=== PATIENT | male | born 1940 | race Caucasian/White ===

== ENCOUNTER 2017-03-26 11:50 | Inpatient (IN) ==
[2017-03-26] MEDS ORDERED: FUROSEMIDE 100 MG/10 ML VIAL IV STA (12:06)
[2017-03-26] MEDS ORDERED: ALBUTEROL/IPRATROPIUM 3 ML NEB RESP TX STA (12:06)
--- NOTE | 2017-03-26 12:11 | Emergency Department Note ---
Arrival - Arrival Chief Complaint: Shortness of Breath Stated Complaint: TRANSFER FROM [facility] ED Nursing Triage Note: PT TRANSFERRED FROM [facility] FOR EVAL OF ELEVATED BNP. PT HAS HAD URI S/S FOR OVER A WEEK WHICH HE SAW DR PICHARDO FOR. PT WOKE THIS AM WITH CHEST PAIN AND SHORTNESS OF BREATH. ASA GIVEN AT [facility]. Mode of Arrival: Stretcher Limitations: No Limitations Source: Patient Time Seen by Provider: 03/26/17 12:06 - History of Present Illness HPI Narrative: This 76-year-old white male dialysis patient followed by Dr. Woodward presents on transfer from [facility] with complaints of shortness of breath. The patient has had 2 months of increasing shortness of breath at rest and with exertion associated with a frequent dry cough in the last 2 weeks. The patient denies orthopnea, PND, pedal edema, or chest pain. Although on dialysis he still urinates. Notable in his workup at [facility] was a proBNP of 35,000 as well as a chest x-ray consistent with congestive heart failure. Currently at rest the patient is in no distress. Onset (ago): week(s) (Patient presents 2 weeks post onset of symptoms) Allergies/Adverse Reactions: Allergies Allergy/AdvReac Type Severity Reaction Status Date / Time morphine Allergy Hallucinati Verified 03/26/17 12:00 ng Home Medications: Home Medications Medication Instructions Recorded Confirmed Type Carvedilol [Coreg] 6.25 mg PO BID #180 tablet 04/01/16 11/10/16 Rx Clopidogrel [Plavix] 75 mg PO DAILY #90 tablet 04/01/16 11/15/16 Rx Heparin Inj 2,000 unit IV WITH DIALYSIS PRN #0 04/01/16 11/15/16 Rx vial Iron Sucrose [Venofer] 50 mg IV WITH DIALYSIS PRN #0 vial 04/01/16 11/10/16 Rx Lisinopril [Prinivil] 2.5 mg PO DAILY #90 tablet 04/01/16 11/10/16 Rx Sevelamer Carbonate Tab [Renvela 800 mg PO TID W/MEALS tablet 04/01/16 Rx Tab] Aspirin [Ecotrin] 81 mg PO DAILY 07/29/16 11/10/16 History Dutasteride/Tamsulosin HCl [Kathy] 1 capsule PO DAILY 09/15/16 11/15/16 History HYDROcodone/ACETAMIN 7.5-325 1 tablet PO Q4H PRN #30 tablet 11/15/16 Rx [Husser 7.5-325] Review of System - Review of System 12 point system: reviewed and no additional remarkable complaints except as stated - Review of System Constitutional: Present: as per HPI Respiratory: Present: as per HPI Cardiovascular: Present: as per HPI Genitourinary male: Present: as per HPI Medical,Surgical,& Family Hx - Medical History Cardio: History of: CHF, Hypertension Neurology: No history of: Seizures HEENT: History of: Eye Problem (GLASSES, CATARACTS), Dental Problems (UPPER AND LOWER) Renal: History of: Dialysis ([facility] DR[facility] WOODWARD), Renal Failure, Renal Problems ( polycystic kidney disease) Genitourinary: History of: Prostate Problems - Surgical History Cardiac Surgeries: Sugical HX of: Cardiac Catheterization (STENT ), Vascular Access Devices (LEFT ARM AV GRAFT) Thoracic Surgeries: Patient denies;: Organ Transplant, Lobectomy Neurologic Surgeries: Patient denies: Neurologic Surgery HEENT Surgeries: Surgical HX of: Eye Surgery (BILATERAL CATARACTS) Abdominal Surgeries: Patient denies: Abdominal Surgery Reproductive Surgeries: Patient denies;: Genitourinary Surgery - Family History Family History: Reports;: Family Hypertension - Social History Smoking Status: Never smoker Frequency of Alcohol Use: None Type of Drug Use: None Exam Physical Examination: GENERAL: Well developed, well nourished elderly white male in no acute distress. HEENT: Normocephalic. No trauma. Moist mucous membranes. EOMI. PERRLA. ENT NML NECK: Supple. No adenopathy. CARDIAC: Regular. No murmurs. Heart rate 100 CHEST: Bibasilar inspiratory rales. No respiratory distress. O2 sat 99%. Right chest Vas-Cath ABDOMEN: Soft. Nontender. Active bowel sounds. EXTREMITIES: No trauma. Normal ROM. No pedal edema. Left upper extremity active fistula with good thrill as well as below that a did fistula. SKIN: No diaphoresis. No rash. NEURO: Alert. Neuro intact no focal deficits. Vital Signs: Vital Signs Temperature 97.2 F L 03/26/17 11:50 Pulse Rate 80 03/26/17 12:16 Respiratory Rate 13 03/26/17 12:16 Blood Pressure 170/90 03/26/17 11:50 O2 Sat by Pulse Oximetry 100 03/26/17 12:16 Course - Reevaluation(s) Reevaluation #1: Patient expectant of admission for heart failure. - Consultations Consultation #1: Discussed with hospitalist service who will admit the patient for further evaluation treatment. Results - Labs Labs: Lab per layered: White blood cell count 11,000 hematocrit 37, BUN 46, creatinine 8.1, glucose 112, CK-MB 0, CPK 29, troponin 0.05, proBNP 35,000 - Impressions EKG sinus rhythm with rare PVC with normal IN interval but intraventricular conduction delay at a rate of 99. Diffuse nonspecific ST changes with no acute injury pattern noted. Disposition Clinical Impression: Congestive heart failure, Dialysis dependent renal failure Case discussed with: patient Disposition: Still a Patient Condition: Guarded Time of Disposition: 12:27
[2017-03-26] MEDS ORDERED: FUROSEMIDE 100 MG/10 ML VIAL ONE (12:26)
[2017-03-26 13:13] LABS: Troponin I Only 0.046 NG/ML (0.00-0.045)
--- NOTE | 2017-03-26 13:30 | Hospitalist History & Physical ---
Assessment and Plan (1) Congestive heart failure Status: Acute Assessment and plan: Admit to telemetry. Cardiac monitoring. Recheck BNP in am. Repeat CXR. Diuresis w/ Lasix. Consult cardiology. Current Visit: No (2) Coronary artery disease Status: Chronic Current Visit: No (3) End stage renal disease Status: Chronic Assessment and plan: Pt. dialyzes MWF. Will consult nephrology to see. Current Visit: No (4) Hypertension Status: Chronic Assessment and plan: Pt. stable presently in am. Current Visit: No Qualifiers: Hypertension type: essential hypertension Qualified Code(s): I10 - Essential (primary) hypertension (5) Polycystic kidney disease Status: Chronic Current Visit: No History of Present Illness Chief complaint: chf exacerbation History of present illness: Mr. Hudson is a 76 year old white male with a history of hypertension, coronary artery disease, CHF, anemia, end-stage renal disease on dialysis that presents to the ED as a transfer from [place] in [place], [place]. Patient was transferred over for further evaluation of shortness of breath. Patient has been having problems with progressively worsening shortness of breath and a dry cough over the last two weeks. Patient states that the cough is nonproductive. Patient also states that this morning he was having midsternal chest pain with the shortness of breath. Patient denies edema to his lower extremities but does complain of edema to his bilateral upper extremities. Patient is a renal patient known to Dr. Woodward and dialyzes on Monday, Monday, and Monday. Patient is a status post dialysis for the last 5 years. Chest x-ray at outside facility was consistent with congestive heart failure. In the ED patient was found to have an elevated troponin (0.046) and elevated BNP (3484). Patient will be admitted to the hospitalist service. Home Medications Medication Instructions Recorded Confirmed Type Clopidogrel [Plavix] 75 mg PO DAILY #90 tablet 04/01/16 03/26/17 Rx Aspirin [Ecotrin] 81 mg PO DAILY 07/29/16 03/26/17 History Dutasteride/Tamsulosin HCl [Kathy] 1 capsule PO DAILY 09/15/16 03/26/17 History Albuterol Sulfate [Proair HFA] 2 puff INH Q4H PRN 03/26/17 03/26/17 History Atenolol 50 mg PO DAILY 03/26/17 03/26/17 History Carvedilol [Coreg] 3.125 mg PO BID 03/26/17 03/26/17 History Sevelamer Carbonate Tab [Renvela 800 mg PO DAILY 03/26/17 03/26/17 History Tab] Allergies Allergy/AdvReac Type Severity Reaction Status Date / Time morphine Allergy Hallucinati Verified 03/26/17 12:00 ng Medical,Surgical,& Family Hx - Medical History Cardio: History of: CHF, Hypertension Neurology: No history of: Seizures HEENT: History of: Eye Problem (GLASSES, CATARACTS), Dental Problems (UPPER AND LOWER) Renal: History of: Dialysis ([facility] DR[facility] WOODWARD), Renal Failure, Renal Problems ( polycystic kidney disease) Genitourinary: History of: Prostate Problems - Surgical History Cardiac Surgeries: Sugical HX of: Cardiac Catheterization (STENT ), Vascular Access Devices (LEFT ARM AV GRAFT) Thoracic Surgeries: Patient denies;: Organ Transplant, Lobectomy Neurologic Surgeries: Patient denies: Neurologic Surgery HEENT Surgeries: Surgical HX of: Eye Surgery (BILATERAL CATARACTS) Abdominal Surgeries: Patient denies: Abdominal Surgery Reproductive Surgeries: Patient denies;: Genitourinary Surgery - Family History Family History: Reports;: Family Hypertension - Social History Smoking Status: Never smoker Frequency of Alcohol Use: None Type of Drug Use: None Marital Status: Lives With:: Spouse Functional capacity: uses cane/walker - Constitutional Constitutional: Absent: chills, fever(s), night sweats - EENT Eyes: Present: loss of vision. Absent: blurry vision Ears: Absent: ear discharge Nose, mouth and throat: Absent: headache(s), hoarseness - Cardiovascular Cardiovascular: Present: dyspnea, edema - Respiratory Respiratory: Present: cough (nonproductive), dyspnea - Gastrointestinal Gastrointestinal: Absent: abdominal pain, nausea, vomiting - Genitourinary Genitourinary: Absent: difficulty urinating, urinary incontinence - Neurological Neurological: Absent: confusion, headache(s) - Psychiatric Psychiatric: Absent: confusion, depression - Hematologic/Lymphatic Hematologic/Lymphatic: Absent: easy bruising Exam - Constitutional Vitals: Period Temp Pulse Resp BP Sys/Mendoza Pulse Ox Last 24 Hr 97.2 F 79-99 12-18 170/90 98-100 General appearance: normal weight, no acute distress - Head Head exam: Present: normal inspection, normocephalic - Eye Eye exam: Present: EOMI. Absent: periorbital swelling Pupils: Present: JORGE L. Absent: dilated - Neck Neck exam: Present: normal inspection. Absent: thyromegaly - Respiratory Respiratory exam: Present: clear to auscultation bilaterally. Absent: wheezes - Cardiovascular Cardiovascular exam: Present: tachycardia - GI/Abdominal GI/Abdominal exam: Present: normal bowel sounds, soft. Absent: tenderness - Extremities Exam Extremities exam: Present: edema (bilateral upper arm) - Neurological Exam Neurological exam: Present: alert, oriented X3 - Psychiatric Psychiatric exam: Present: normal affect, normal mood - Skin Skin exam: Present: normal color, warm, dry
[2017-03-26] MEDS ORDERED: MAGNESIUM SULF RIDER 4 GM in PREMIX 1 EACH IV PRN (15:04)
[2017-03-26] MEDS ORDERED: DOCUSATE SODIUM 100 MG CAPSULE PO PRN (15:04)
[2017-03-26] MEDS ORDERED: MAGNESIUM SULF RIDER 2 GM in PREMIX 1 EACH IV PRN (15:04)
[2017-03-26] MEDS ORDERED: ONDANSETRON 4 MG/2 ML VIAL IV PRN (15:04)
[2017-03-26] MEDS ORDERED: ALBUTEROL 2.5 MG/3 ML NEB RESP TX PRN (15:04)
[2017-03-26] MEDS ORDERED: ACETAMINOPHEN 325 MG TABLET PO PRN (15:04)
--- NOTE | 2017-03-26 15:31 | XRay Report ---
History CHF Chest one view 03/26/2017 at 3:00 PM Comparison with earlier the same day The heart and vessels are enlarged with upper lobe vascular congestion There is been mild worsening of moderate diffuse bilateral reticular and hazy pulmonary opacities without more focal consolidation Impression: Mild worsening of pulmonary edema PROCEDURE INTERPRETED AT [facility] DEPARTMENT OF RADIOLOGY Final Report Signed by: Dr. Lucrecia Kennedy
--- NOTE | 2017-03-26 15:51 | Nephrology Consult Note ---
History of Present Illness Chief complaint: Shortness of breath in a patient on dialysis History of present illness: Mr. Hudson is a 76 year old male with end-stage renal disease who dialyzes on Monday basis in [facility]. The patient presented to the hospital today with complaints of shortness of breath. The patient last dialyzed Monday of last week he states they were able to pull off about 2 L of fluid and was feeling well up until today when he began to have some shortness of breath. The patient states she has had an associated cough but has not been bringing up much of anything. He also had some associated chest pain. The patient states he has been having a cough for the past 2 months or so he is been tried on multiple antibiotics without any improvement. Review of his record reveals a cardiac catheterization done about a year ago that showed an ejection fraction of 20% with moderate to severe mitral insufficiency. The patient also had a coronary artery stent done at that time. The patient denies overindulging in salt or fluid intake over the weekend. The patient reports that he was in the hospital within a few months ago for similar complaints of shortness of breath. ROS: Head - denies headaches ENT - denies sore throat Lymphatics - denies lymphadenopathy Hematology - denies bleeding problems Heart -positive chest pain Lungs -positive shortness of breath Abdomen - denies abdominal pain Musculoskeletal -positive arthritis Skin -positive rash Neurology -positive stroke General - denies fever PE: General: in no acute distress Eyes: Pupils are round and reactive, conjunctivae are clear ENT: Nose is clear, O/P is benign Neck: Supple, no thyromegaly Lymphatics: No cervical, supraclavicular or axillary adenopathy Heart: Regular rate and rhythm, no edema Lungs: Clear to auscultation anteriorly but has a congested sounding cough heard without the stethoscope, chest expansion symmetric Abdomen: Soft, normoactive bowel sounds, no hepatomegaly Musculoskeletal: No joint erythema or effusions or joint asymmetry Skin: Normal turgor, normal hydration, no rash Neuro/Psych: Alert and cooperative with fair insight Home Medications Medication Instructions Recorded Confirmed Type Clopidogrel [Plavix] 75 mg PO DAILY #90 tablet 04/01/16 03/26/17 Rx Aspirin [Ecotrin] 81 mg PO DAILY 07/29/16 03/26/17 History Dutasteride/Tamsulosin HCl [Kathy] 1 capsule PO DAILY 09/15/16 03/26/17 History Calcium Carb/Magnesium Hydrox 1 each PO TID W/MEALS 03/26/17 03/26/17 History [Rolaids Chewable Tablet] Carvedilol [Coreg] 3.125 mg PO BID 03/26/17 03/26/17 History Nitroglycerin 0.4 mg SL DIRECTED 03/26/17 03/26/17 History Sevelamer Carbonate Tab [Renvela 800 mg PO DAILY 03/26/17 03/26/17 History Tab] Allergies Allergy/AdvReac Type Severity Reaction Status Date / Time morphine Allergy Hallucinati Verified 03/26/17 15:30 ng Medical,Surgical,& Family Hx - Medical History Cardio: History of: CHF, Hypertension Neurology: No history of: Seizures HEENT: History of: Eye Problem (GLASSES, CATARACTS), Dental Problems (UPPER AND LOWER) Renal: History of: Dialysis (MWF DR. WOODWARD), Renal Failure, Renal Problems ( polycystic kidney disease) Genitourinary: History of: Prostate Problems - Surgical History Cardiac Surgeries: Sugical HX of: Cardiac Catheterization (STENT ), Vascular Access Devices (LEFT ARM AV GRAFT) Thoracic Surgeries: Patient denies;: Organ Transplant, Lobectomy Neurologic Surgeries: Patient denies: Neurologic Surgery HEENT Surgeries: Surgical HX of: Eye Surgery (BILATERAL CATARACTS) Abdominal Surgeries: Patient denies: Abdominal Surgery Reproductive Surgeries: Patient denies;: Genitourinary Surgery - Family History Family History: Reports;: Family Hypertension - Social History Smoking Status: Never smoker Frequency of Alcohol Use: None Type of Drug Use: None Exam - Vital Signs Vital signs: Period Temp Pulse Resp BP Sys/Mendoza Pulse Ox Last 24 Hr 96.2 F-97.2 F 72-114 12-19 135-170/76-90 98-100 Assessment and Plan (1) Congestive heart failure Status: Acute Assessment and plan: This patient has an elevated BNP and is having dyspnea at rest he has a long history of cardiomyopathy with an ejection fraction around 20% last year and moderate to severe mitral insufficiency. The patient is breathing better with supplemental O2 will plan on hemodialysis tomorrow. Current Visit: No (2) History of end stage renal disease Status: Acute Assessment and plan: Hemodialysis tomorrow Current Visit: No (3) Secondary hyperparathyroidism Status: Acute Assessment and plan: We will continue his Renvela Current Visit: No (4) cardiomyopathy of undetermined etiology Status: Acute Current Visit: No (5) Coronary artery disease Status: Chronic Current Visit: No (6) Hypertension Status: Chronic Current Visit: No Qualifiers: Hypertension type: essential hypertension Qualified Code(s): I10 - Essential (primary) hypertension
[2017-03-26 16:03] LABS: Basophils # 0.1 10*3/uL (0.0-0.2); Basophils % 0.5 % (0.0-0.8); Eosinophils # 0.1 10*3/uL (0.0-0.87); Eosinophils % 1.2 % (0.00-10.9); Hematocrit 34.7 VOL% (42.0-52.0); Hemoglobin 11.2 GM/DL (14.0-18.0); Immature Granulocytes % 0.6 %; Immature Granulocytes Absolute 0.06 #; Lymphocytes # 1.5 10*3/uL (1.4-4.0); Lymphocytes % 14.3 % (21.2-54.2); Mean Corpuscular HGB Conc 32.3 GM/DL (32-36); Mean Corpuscular Hemoglobin 34 PG (27-34); Mean Corpuscular Volume 104.8 FL (87-102); Mean Platelet Volume 10.8 FL (9.6-12.0); Monocytes # 0.9 10*3/uL (0.11-0.8); Neutrophils # 8.2 10*3/uL (1.4-7.4); Neutrophils % 75.4 % (38.7-73.9); Platelet Count 183 T/CUMM (130-400); Red Blood Count 3.31 MC/CUMM (3.8-5.5); White Blood Count 10.8 T/CUMM (4-12)
[2017-03-26 16:24] LABS: Calcium 9.6 MG/DL (8.5-10.1)
[2017-03-26 16:25] LABS: Osmolality,Calculated 290.5 MOS/KG (273-304)
[2017-03-26 16:33] LABS: Troponin I Only 0.048 NG/ML (0.00-0.045)
--- NOTE | 2017-03-26 20:32 | Cardiology Consult Note ---
Assessment and Plan - Time spent with patient Time spent with patient: Greater than 30 minutes (1) Chest pain in adult Status: Acute Assessment and plan: Diagnosis would include GI, muscle skeletal, or CAD. It sounds more GI related. Try to start a low-dose of Coreg for his cardiomyopathy Discontinue the atenolol--the Coreg would be better for his cardiomyopathy Continue the clopidogrel I suspect he may need a lower dry body weight keep out of heart failure--will defer to nephrology as what weight that should be If the dispatcher tugboat think there is no contraindication, we might consider adding a low-dose of SYBIL inhibitor because of his known cardiomyopathy Echo/Doppler--murmur, cardiomyopathy-can be done tomorrow Agree with Protonix 40 mg daily Elevate head of bed Cardiac isoenzymes--every 6 hours 4 EKG every morning 3 If negative for [place], I would favor letting him go home and do an outpatient treadmill/Cardiolite with Dr. Beaulieu Elevate head of bed 30-40 Thank you for allowing me to participate in this patient's care Current Visit: Yes (2) Overweight Status: Acute Current Visit: Yes (3) Congestive heart failure Status: Acute Current Visit: No (4) History of end stage renal disease Status: Acute Current Visit: No (5) Secondary hyperparathyroidism Status: Acute Current Visit: No (6) Systolic congestive heart failure Status: Acute Current Visit: No (7) Volume overload Status: Acute Current Visit: No (8) cardiomyopathy of undetermined etiology Status: Acute Current Visit: No (9) Coronary artery disease Status: Chronic Current Visit: No (10) End stage renal disease Status: Chronic Current Visit: No History of Present Illness - Data of Consult Patient: known to practice within the last 3 years Consult date: 03/26/17 Primary care physician: Bon Lau - Consult Narrative Reason for consult: Evaluate shortness breath, chest pain History of present illness: Mr. Hudson is a 76 year old male PCP: Dr. Bon Lau Cardiology: Dr. Tobi Beaulieu Monkey Breeder: Dr. Jeremy Skaggs The patient has a known cardiomyopathy is nonischemic. History of prior stent of his mid right coronary. His LVEF about a year ago was 20%. He lives with some chest pain. Nothing brings it on. Nothing makes better but is burning. Is in his mid chest. It does not radiate to neck arms or back. It been more short of breath. He came to emergency room. He was seen. Has heart failure. because of his chest pain and history of prior coronary stent, he is admitted. Also seen probably has orthopnea, PND 3. No edema, palpitations, syncope, wheezing or phlegm. He has had cough for the last 2 months Past medical history: Hypertension Prior coronary stent Volume overload End-stage renal disease-on hemodialysis .. This admission was 3484 with a creatinine Cardiomyopathy, nonischemic Overweight CC: Dustin Wiggins MD - Home Medications and Allergies Home Medications: Home Medications Medication Instructions Recorded Confirmed Type Clopidogrel [Plavix] 75 mg PO DAILY #90 tablet 04/01/16 03/26/17 Rx Aspirin [Ecotrin] 81 mg PO DAILY 07/29/16 03/26/17 History Dutasteride/Tamsulosin HCl [Kathy] 1 capsule PO DAILY 09/15/16 03/26/17 History Calcium Carb/Magnesium Hydrox 1 each PO TID W/MEALS 03/26/17 03/26/17 History [Rolaids Chewable Tablet] Carvedilol [Coreg] 3.125 mg PO BID 03/26/17 03/26/17 History Nitroglycerin 0.4 mg SL DIRECTED 03/26/17 03/26/17 History Sevelamer Carbonate Tab [Renvela 800 mg PO DAILY 03/26/17 03/26/17 History Tab] Allergies/Adverse Reactions: Allergies Allergy/AdvReac Type Severity Reaction Status Date / Time morphine Allergy Hallucinati Verified 03/26/17 15:30 ng 12 point system: reviewed and no additional remarkable complaints except as stated (A 12 point review of systems is negative except for as mentioned in HPI. ) Medical,Surgical,& Family Hx - Medical History Cardio: History of: CHF, Hypertension Neurology: No history of: Seizures HEENT: History of: Eye Problem (GLASSES, CATARACTS), Dental Problems (UPPER AND LOWER) Renal: History of: Dialysis (MWF DR. SKAGGS), Renal Failure, Renal Problems ( polycystic kidney disease) Genitourinary: History of: Prostate Problems - Surgical History Cardiac Surgeries: Sugical HX of: Cardiac Catheterization (STENT ), Vascular Access Devices (LEFT ARM AV GRAFT) Thoracic Surgeries: Patient denies;: Organ Transplant, Lobectomy Neurologic Surgeries: Patient denies: Neurologic Surgery HEENT Surgeries: Surgical HX of: Eye Surgery (BILATERAL CATARACTS) Abdominal Surgeries: Patient denies: Abdominal Surgery Reproductive Surgeries: Patient denies;: Genitourinary Surgery - Family History Family History: Reports;: Family Hypertension - Social History Smoking Status: Never smoker Frequency of Alcohol Use: None Type of Drug Use: None Functional capacity: independent ambulation Physical Examination Vital Signs Temp Pulse Resp BP Pulse Ox 97.2 F L 99 H 18 170/90 99 03/26/17 11:50 03/26/17 11:50 03/26/17 11:50 03/26/17 11:50 03/26/17 11:50 Other: HEENT: Pupils equal, reactive to light and accommodation Neck: NoJVD or bruit Lungs clear to auscultation Heart: Regular rhythm rate with normal S1 and S2. Apical S4, 1/6 systolic ejection murmur along left lower sternal border. Abdomen: No hepatosplenomegaly Spine/extremities: No clubbing, cyanosis, or edema Neuro: Nonfocal Psych: No depression or anxiety No chest pain with pressing on the chest. Result/EKG - Labs CBC & BMP: 03/26/17 15:41 03/26/17 15:41 Lab Results: I have reviewed the past 24 hour labs Labs: Laboratory Results - last 24 hr 03/26/17 03/26/17 03/26/17 12:35 12:35 15:41 WBC RBC Hgb Hct MCV MCH MCHC RDW Plt Count MPV Neut % (Auto) Lymph % (Auto) [place] % (Auto) Eos % (Auto) Baso % (Auto) Neut # (Auto) Lymph # (Auto) [place] # (Auto) Eos # (Auto) Baso # (Auto) Immature Gran % Nucleated RBC % Immature Gran # Nucleated RBCs # Sodium Potassium Chloride Carbon Dioxide Anion Gap BUN Creatinine GFR Calculation BUN/Creatinine Ratio Glucose Calculated Osmolality Calcium Total Creatine Kinase 18 L 21 L CK-MB (CK-2) < 1.0 < 1.0 Troponin I 0.046 H 0.048 H B-Natriuretic Peptide 3484 H 03/26/17 03/26/17 03/26/17 15:41 15:41 17:45 WBC 10.8 RBC 3.31 L Hgb 11.2 L Hct 34.7 L MCV 104.8 H MCH 34 MCHC 32.3 RDW 14.0 Plt Count 183 MPV 10.8 Neut % (Auto) 75.4 H Lymph % (Auto) 14.3 L [place] % (Auto) 8.0 Eos % (Auto) 1.2 Baso % (Auto) 0.5 Neut # (Auto) 8.2 H Lymph # (Auto) 1.5 [place] # (Auto) 0.9 H Eos # (Auto) 0.1 Baso # (Auto) 0.1 Immature Gran % 0.6 Nucleated RBC % 0.0 Immature Gran # 0.06 Nucleated RBCs # 0.00 Sodium 139 Potassium 5.0 Chloride 96 L Carbon Dioxide 33 H Anion Gap 15.0 BUN 50 H Creatinine 8.60 H GFR Calculation 6 BUN/Creatinine Ratio 5.00 L Glucose 110 H Calculated Osmolality 290.5 Calcium 9.6 Total Creatine Kinase 21 L CK-MB (CK-2) < 1.0 Troponin I 0.050 H B-Natriuretic Peptide - Diagnostic Findings Procedure: Chest x-ray: report reviewed by me - EKG EKG results: interpreted by me
[2017-03-26] MEDS: FUROSEMIDE 40 MG/4 ML VIAL IV SCH (20:53)
[2017-03-26] MEDS: CARVEDILOL 12.5 MG TABLET PO SCH (21:00)
[2017-03-26 22:02] LABS: Troponin I Only 0.084 NG/ML (0.00-0.045)
[2017-03-27 04:59] LABS: Basophils % 0.3 % (0.0-0.8); Eosinophils % 0.3 % (0.00-10.9); Hematocrit 33.1 VOL% (42.0-52.0); Hemoglobin 10.8 GM/DL (14.0-18.0); Immature Granulocytes % 1.2 %; Immature Granulocytes Absolute 0.16 #; Lymphocytes # 1.4 10*3/uL (1.4-4.0); Lymphocytes % 10.4 % (21.2-54.2); Mean Corpuscular HGB Conc 32.6 GM/DL (32-36); Mean Corpuscular Hemoglobin 35 PG (27-34); Mean Corpuscular Volume 106.1 FL (87-102); Mean Platelet Volume 11.8 FL (9.6-12.0); Monocytes # 1.1 10*3/uL (0.11-0.8); Monocytes % 8.3 % (1.7-12.7); Neutrophils # 10.5 10*3/uL (1.4-7.4); Neutrophils % 79.5 % (38.7-73.9); Platelet Count 145 T/CUMM (130-400); Red Blood Count 3.12 MC/CUMM (3.8-5.5); Red Cell Distribution Width 14.2 % (9.3-17.3); White Blood Count 13.2 T/CUMM (4-12)
[2017-03-27 05:34] LABS: Calcium 9.6 MG/DL (8.5-10.1); Magnesium 2.7 MG/DL (1.8-2.4); Osmolality,Calculated 296.4 MOS/KG (273-304); Potassium 5.7 MMOL/L (3.5-5.1)
[2017-03-27 05:43] LABS: Free T4 (Free Thyroxine) 1.02 NG/DL (0.76-1.46); Magnesium 2.8 MG/DL (1.8-2.4); Thyroid Stimulating Hormone 1.39 uIU/ml (0.358-3.74)
[2017-03-27 06:05] LABS: Hypochromasia Slight
[2017-03-27 06:06] LABS: Platelet Estimate Adequate
--- NOTE | 2017-03-27 06:11 | EKG Report ---
Stationary ECG Study [facility] Test Date: 03/26/2017 5:16:51 PM Pat Name: LOUIE ANDRES Department: Room: 265 Gender: M Manager Rental: [facility] lead : 1940 Requested by: Zachary Thomas Order Number: [id number] Reading MD: EVELYN HARRIS Intervals [place] Rate: 105 P: 31 [place]: 175 QRS: 14 QRSD: 146 T: 148 QT: 366 QTc: 427 Interpretive Statements SINUS TACHYCARDIA WITH FREQUENT VENTRICULAR PREMATURE COMPLEXES POSSIBLE LEFT ATRIAL ENLARGEMENT LEFT BUNDLE BRANCH BLOCK Electronically Signed On 03-27-17 10:42:43 CDT by EVELYN HARRIS [email or web address]
--- NOTE | 2017-03-27 06:31 | EKG Report ---
Stationary ECG Study [facility] ER Test Date: 03/26/2017 11:57:35 AM Pat Name: LOUIE ANDRES Department: Room: 265 Gender: M [place] Opener: : 1940 Requested by: Gray Dominguez Order Number: [id number] Reading MD: EVELYN HARRIS Intervals [place] Rate: 88 P: 71 [place]: 178 QRS: 115 QRSD: 144 T: -59 QT: 386 QTc: 432 Interpretive Statements SINUS RHYTHM WITH OCCASIONAL VENTRICULAR PREMATURE COMPLEXES MARKED RIGHT AXIS DEVIATION INTRAVENTRICULAR CONDUCTION DELAY Electronically Signed On 03-27-17 10:37:15 CDT by EVELYN HARRIS [id number]
[2017-03-27 06:46] LABS: Troponin I Only 0.503 NG/ML (0.00-0.045)
--- NOTE | 2017-03-27 07:31 | EKG Report ---
Stationary ECG Study [facility] Test Date: 03/27/2017 7:31:59 AM Pat Name: LOUIE ANDRES Department: Room: 265 Gender: M Analyst Microbiology Lab: [facility] : 1940 Requested by: Evelyn Pacheco Order Number: [id number] Reading MD: EVELYN PACHECO Intervals [place] Rate: 91 P: 63 HI: 164 QRS: 118 QRSD: 141 T: -50 QT: 389 QTc: 437 Interpretive Statements SINUS RHYTHM WITH OCCASIONAL VENTRICULAR PREMATURE COMPLEXES INTRAVENTRICULAR CONDUCTION DELAY Electronically Signed On 03-27-17 08:06:30 CDT by EVELYN PACHECO [email or web address]
[2017-03-27 07:55] LABS: Lymphocytes 10 % (20-55); Segmented Neutrophils 89 % (50-85); Total Cells Counted 100
[2017-03-27] MEDS ORDERED: ATENOLOL 50 MG TABLET PO SCH (09:00)
--- NOTE | 2017-03-27 10:47 | Nephrology Progress Note ---
Nephrology - PN: Subj Interval history: Patient states she is breathing better with the supplemental O2. Review of systems GI denies nausea or vomiting Physical exam general the patient is chronically ill-appearing Assessment/plan #1. End-stage renal disease we will continue hemodialysis support 2. Cardiomyopathy with congestive heart failure-lowering his dry weight sounds like a very reasonable approach and will try and effect this with dialysis, an SYBIL or an angiotensin receptor zack would be fine if he will tolerate this of note the patient's blood pressure is already fairly low with a systolic of 110-120 and I am not sure how that would hold up under a dry weight challenge much less just trying to keep his weight even with ultrafiltration on dialysis. 3. History of hypertension 4. Anemia-this is mild his hematocrit is 33% Exam (PN)-Nephrology - Vital Signs Vital signs: Period Temp Pulse Resp BP Sys/Mendoza Pulse Ox Last 24 Hr 96.2 F-98.8 F 72-119 12-20 110-170/60-90 92-100 - Lab 03/27/17 03:51 03/27/17 03:51 Most recent lab results Calcium 9.6 MG/DL (8.5-10.1) 03/27/17 03:51 Magnesium 2.8 MG/DL (1.8-2.4) H 03/27/17 03:51 Assessment and Plan (1) Congestive heart failure Status: Acute Assessment and plan: This patient has an elevated BNP and is having dyspnea at rest he has a long history of cardiomyopathy with an ejection fraction around 20% last year and moderate to severe mitral insufficiency. The patient is breathing better with supplemental O2 will plan on hemodialysis tomorrow. Current Visit: No (2) History of end stage renal disease Status: Chronic Assessment and plan: Hemodialysis tomorrow Current Visit: Yes (3) Secondary hyperparathyroidism Status: Acute Assessment and plan: We will continue his Renvela Current Visit: No (4) cardiomyopathy of undetermined etiology Status: Acute Current Visit: No (5) Coronary artery disease Status: Chronic Current Visit: Yes (6) Hypertension Status: Chronic Current Visit: Yes Qualifiers: Hypertension type: essential hypertension Qualified Code(s): I10 - Essential (primary) hypertension
--- NOTE | 2017-03-27 12:35 | Hospitalist Progress Note ---
Assessment and Plan - Time spent with patient Time spent with patient: Less than 30 minutes (1) Congestive heart failure Status: Acute Assessment and plan: Mr. Hudson is a 76-year-old white male with history of hypertension, end-stage renal disease on HD, coronary artery disease, and congestive heart failure admitted by the hospitalist service on 03/26/2017 with acute exacerbation of congestive heart failure. Patient had mildly elevated troponin and elevated BNP. His fluid has been restricted and he has been receiving Lasix IV. Nephrology and cardiology are following. Dr. Marlow to see and examined patient and further recommendations to follow. Acute CHF--patient is receiving 40 mg IV Lasix twice daily. He is also to undergo hemodialysis today which should help. Patient is breathing much easier and his lungs are clear though his BNP this morning shows greater than 5000. CAD--cardiology is following. They have discontinued his atenolol and started Coreg which is better for his cardiomyopathy. They were to continue his Plavix. There are also checking cardiac isoenzymes and EKGs for [facility]. If VA is negative they recommend outpatient treadmill/Cardiolite with Dr. Beaulieu. Echo has been ordered and looks like it was done but [facility]. End-stage renal disease on HD--nephrology is following and will monitor patient' s dry body weight. Cardiology wants to consider adding a low-dose SYBIL inhibitor if okay with nephrology. Current Visit: No (2) End stage renal disease Status: Chronic Current Visit: No (3) Polycystic kidney disease Status: Chronic Current Visit: No (4) Hypertension Status: Chronic Current Visit: Yes Qualifiers: Hypertension type: essential hypertension Qualified Code(s): I10 - Essential (primary) hypertension (5) Coronary artery disease Status: Chronic Current Visit: Yes Hospitalist: Subjective Interval history: Mr. Hudson feels much better today. He states his breathing is easier and is supposed to have dialysis sometime today. He does state he has had some blood in his urine since they took the Villanueva out and burning with urination. Exam - Constitutional Vitals: Period Temp Pulse Resp BP Sys/Mendoza Pulse Ox Last 24 Hr 96.2 F-98.8 F 85-119 17-20 110-135/60-84 92-99 Exam: 76-year-old white male, no acute distress, alert and oriented Chest clear CV regular rate and rhythm Abdomen soft and nontender Extremities no edema Results - Labs CBC & BMP: 03/27/17 03:51 03/27/17 03:51 Lab Results: I have reviewed the past 24 hour labs
--- NOTE | 2017-03-27 12:42 | ECHO Report ---
Vin Hudson Exam Date: 03/27/2017 09:07 Referring Physician: Technologist: Liliya Braswell RDCS Age: 76 Ht (in): 70 Wt (lb): 174 Gender: M Exam Location: [facility] Echo Indications: Chest pain, unspecified, Shortness of breath, CAD, Cardiomyopathy, unspecified, Volume overload, Unspecified systolic (congestive) heart failure, End stage renal disease BP: 114 / 65 HR: 91 Rhythm: Sinus Technical Quality: IMPRESSIONS 3+ left atrial enlargement, and 2+ right ventricular enlargement 1+ concentric LVH Severely reduced LV systolic function with ejection fraction estimated to be 25% without clear segmental wall motion normality Aortic sclerosis without stenosis 2+ mitral regurgitation 2+ tricuspid regurgitation with RVSP 57 mmHg plus RAP suggesting moderate to severe pulmonary hypertension MEASUREMENTS (Male / Female) Normal Values 2D ECHO LV Diastolic Diameter PLAX 5.2 cm 4.2 - 5.9 / 3.9 - 5.3 cm LV Systolic Diameter PLAX 4.6 cm LV Fractional Shortening PLAX 10.8 % IVS Diastolic Thickness 1.3 cm 0.6 - 1.0 / 0.6 - 0.9 cm LVPW Diastolic Thickness 1.3 cm 0.6 - 1.0 / 0.6 - 0.9 cm RV Internal Dim ED PLAX 4.1 cm Aortic Root Diameter 3.7 cm LA Systolic Diameter LX 5.6 cm 3.0 - 4.0 / 2.7 - 3.8 cm DOPPLER TR Peak Velocity 377.0 cm/s TR Peak Gradient 56.9 mmHg FINDINGS Left Ventricle Normal left ventricular cavity size. Mild left ventricular hypertrophy. Left ventricular ejection fraction is estimated at 25 %. Right Ventricle Mildly increased right ventricular size. Right Atrium Moderately increased right atrial size. Left Atrium Moderately increased left atrial size. Mitral Valve Mildly thickened mitral valve. Mild mitral annular calcification. Mild- moderate mitral valve regurgitation. Aortic Valve Aortic valve sclerosis without stenosis or regurgitation. Tricuspid Valve Morphologically normal tricuspid valve. Mild tricuspid valve regurgitation. Tricuspid regurgitation velocities suggest a PAP of 67 mmHg. Pulmonic Valve Morphologically normal pulmonic valve. Mild pulmonary valve regurgitation. Pericardium Normal pericardium without effusion. Aorta Normal ascending aorta dimension. Berhane Hussein (Electronically Signed) Final Date: 27 March 2017 12:41
--- NOTE | 2017-03-27 13:37 | Cardiology Progress Note ---
I, Tamy Cash RN, am scribing for, and in the presence of, Berhane Hussein MD 13:34. Assessment and Plan (1) Ischemic cardiomyopathy Status: Chronic Assessment and plan: 1. 76-year-old with controlled hypertension, dyslipidemia, ESRD, known severe ischemic cardiomyopathy with moderate MR status post mid RCA stenting by Dr. Beaulieu March 2016, now presents with 2 months of intermittent cough and dyspnea , having a 30 minutes of chest discomfort "like what I had before my stent", troponin elevation to 0.5 today 2. I believe left heart catheterization will be the best way to evaluate for in -stent restenosis or new CAD 3. His EF is severely reduced on echo today but not much different than March 2016 (20% EF today) 4. Dr. Andrews will perform heart catheterization; the patient is agreeable to this. It may be best to use right groin access given he has old hemodialysis grafts in his left arm, now has a temporary in his right subclavian. Current Visit: Yes (2) Chest pain Status: Acute Current Visit: Yes (3) History of end stage renal disease Status: Chronic Current Visit: Yes (4) Systolic congestive heart failure Status: Chronic Current Visit: Yes (5) Coronary artery disease Status: Chronic Current Visit: Yes (6) Hypertension Status: Chronic Current Visit: Yes Qualifiers: Hypertension type: essential hypertension Qualified Code(s): I10 - Essential (primary) hypertension Cardiology - PN: Subj Interval history: Cardiology: Dr. Tobi Beaulieu Football Pad Repairer: Dr. Jeremy Skaggs PCP: Dr. Bon Lau Mr. Hudson is a 69-year-old male who is routinely followed by Dr. Beaulieu with an ischemic cardiomyopathy, ejection fraction a year ago was 20%. An echocardiogram has been ordered for this morning. He had a drug-eluting stent placed to mid right coronary artery 03/31/2016. He also has a history of end- stage renal disease, he dialyzes Wednesdays and Fridays. His atenolol has been changed to Coreg 12.5 twice daily, Protonix 40 mg daily has been added. He presented to the emergency department with shortness of breath and chest pain we were asked to see to evaluate. EKG on admission showed sinus rhythm with heart rate of 88. Initial labs showed a trivial troponin of 0.048 with negative CK and CK-MB. BNP was 3484. Mr. Hudson is seen this morning resting in bed no acute distress. He reports he is not having any further chest pain. Oxygen is in use via nasal cannula and he says his breathing is improved he continues to be more short of breath than normal. surveillance system monitor currently shows sinus rhythm with heart rates in the 90s. His troponin this morning is elevated slightly to 0.503. However his CK and CK-MB continue to be negative and this is in the presence of chronic renal failure with a creatinine of 10 this morning. His BNP is also elevated since admission, this morning it is >5000. He is scheduled to dialyze today. Exam (Progress Note) - Constitutional Vitals: Period Temp Pulse Resp BP Sys/Mendoza Pulse Ox Last 24 Hr 96.2 F-98.8 F 72-119 12-20 110-170/60-90 92-100 General appearance: normal weight, no acute distress - Head Head exam: Absent: abrasion, hematoma - Eye Eye exam: Absent: periorbital swelling, laceration to eyelids - Neck Neck exam: Absent: tenderness - Respiratory Respiratory exam: Present: clear to auscultation bilaterally, other (Oxygen via nasal cannula). Absent: accessory muscle use, chest wall tenderness - Cardiovascular Cardiovascular exam: Present: regular rate and rhythm, systolic murmur. Absent : rubs - GI/Abdominal GI/Abdominal exam: Present: normal bowel sounds, soft. Absent: distended, tenderness - Extremities Exam Extremities exam: Absent: edema - Neurological Exam Neurological exam: Present: alert, oriented X3 - Psychiatric Psychiatric exam: Present: normal affect, normal mood - Skin Skin exam: Present: warm, dry Result/EKG - Labs CBC & BMP: 03/27/17 03:51 03/27/17 03:51 Lab Results: I have reviewed the past 24 hour labs Labs: Laboratory Results - last 24 hr 03/26/17 03/26/17 03/26/17 12:35 12:35 15:41 WBC RBC Hgb Hct MCV MCH MCHC RDW Plt Count MPV Neut % (Auto) Lymph % (Auto) [place] % (Auto) Eos % (Auto) Baso % (Auto) Neut # (Auto) Lymph # (Auto) [place] # (Auto) Eos # (Auto) Baso # (Auto) Total Counted Immature Gran % Nucleated RBC % Immature Gran # Segmented Neutrophils Lymphocytes Monocytes Nucleated RBCs # Platelet Estimate Hypochromasia Sodium Potassium Chloride Carbon Dioxide Anion Gap BUN Creatinine GFR Calculation BUN/Creatinine Ratio Glucose Calculated Osmolality Calcium Magnesium Total Creatine Kinase 18 L 21 L CK-MB (CK-2) < 1.0 < 1.0 Troponin I 0.046 H 0.048 H B-Natriuretic Peptide 3484 H Free T4 TSH 3rd Generation 03/26/17 03/26/17 03/26/17 15:41 15:41 17:45 WBC 10.8 RBC 3.31 L Hgb 11.2 L Hct 34.7 L MCV 104.8 H MCH 34 MCHC 32.3 RDW 14.0 Plt Count 183 MPV 10.8 Neut % (Auto) 75.4 H Lymph % (Auto) 14.3 L [place] % (Auto) 8.0 Eos % (Auto) 1.2 Baso % (Auto) 0.5 Neut # (Auto) 8.2 H Lymph # (Auto) 1.5 [place] # (Auto) 0.9 H Eos # (Auto) 0.1 Baso # (Auto) 0.1 Total Counted Immature Gran % 0.6 Nucleated RBC % 0.0 Immature Gran # 0.06 Segmented Neutrophils Lymphocytes Monocytes Nucleated RBCs # 0.00 Platelet Estimate Hypochromasia Sodium 139 Potassium 5.0 Chloride 96 L Carbon Dioxide 33 H Anion Gap 15.0 BUN 50 H Creatinine 8.60 H GFR Calculation 6 BUN/Creatinine Ratio 5.00 L Glucose 110 H Calculated Osmolality 290.5 Calcium 9.6 Magnesium Total Creatine Kinase 21 L CK-MB (CK-2) < 1.0 Troponin I 0.050 H B-Natriuretic Peptide Free T4 TSH 3rd Generation 03/26/17 03/27/17 03/27/17 21:12 03:51 03:51 WBC 13.2 H RBC 3.12 L Hgb 10.8 L Hct 33.1 L MCV 106.1 H MCH 35 H MCHC 32.6 RDW 14.2 Plt Count 145 D MPV 11.8 Neut % (Auto) 79.5 H Lymph % (Auto) 10.4 L [place] % (Auto) 8.3 Eos % (Auto) 0.3 Baso % (Auto) 0.3 Neut # (Auto) 10.5 H Lymph # (Auto) 1.4 [place] # (Auto) 1.1 H Eos # (Auto) 0.0 Baso # (Auto) 0.0 Total Counted 100 Immature Gran % 1.2 Nucleated RBC % 0.0 Immature Gran # 0.16 Segmented Neutrophils 89 H Lymphocytes 10 L Monocytes 1 L Nucleated RBCs # 0.00 Platelet Estimate Adequate Hypochromasia Slight Sodium Potassium Chloride Carbon Dioxide Anion Gap BUN Creatinine GFR Calculation BUN/Creatinine Ratio Glucose Calculated Osmolality Calcium Magnesium 2.8 H Total Creatine Kinase 24 L CK-MB (CK-2) < 1.0 Troponin I 0.084 H D B-Natriuretic Peptide Free T4 1.02 TSH 3rd Generation 1.390 03/27/17 03/27/17 03/27/17 03:51 03:51 05:32 WBC RBC Hgb Hct MCV MCH MCHC RDW Plt Count MPV Neut % (Auto) Lymph % (Auto) [place] % (Auto) Eos % (Auto) Baso % (Auto) Neut # (Auto) Lymph # (Auto) [place] # (Auto) Eos # (Auto) Baso # (Auto) Total Counted Immature Gran % Nucleated RBC % Immature Gran # Segmented Neutrophils Lymphocytes Monocytes Nucleated RBCs # Platelet Estimate Hypochromasia Sodium 140 Potassium 5.7 H Chloride 99 Carbon Dioxide 28 Anion Gap 18.7 H BUN 64 H D Creatinine 10.00 H GFR Calculation 5 BUN/Creatinine Ratio 6.00 Glucose 99 Calculated Osmolality 296.4 Calcium 9.6 Magnesium 2.7 H Total Creatine Kinase 33 L D CK-MB (CK-2) 2.0 Troponin I 0.503 H D B-Natriuretic Peptide > 5000 H Free T4 TSH 3rd Generation - EKG EKG results: interpreted by me EKG shows: sinus rhythm Jovita Cortés Randall Scott, MD, personally performed the services described in this documentation, ascribed by Tamy Cash RN in my presence, and it is both accurate and complete 337 .
[2017-03-27] MEDS ORDERED: diphenhydrAMINE CAP 25 MG CAPSULE PO ONE (14:04)
[2017-03-27] MEDS ORDERED: POTASSIUM CHLORIDE RIDER 10 MEQ in PREMIX 1 EACH IV PRN (14:04)
[2017-03-27] MEDS ORDERED: ASPIRIN 325 MG TABLET PO ONE (14:04)
[2017-03-27] MEDS ORDERED: DIAZEPAM 5 MG TABLET PO ONE (14:04)
[2017-03-27] MEDS ORDERED: MAGNESIUM SULF RIDER 2 GM in PREMIX 1 EACH IV PRN (14:04)
--- NOTE | 2017-03-27 14:04 | Event Note ---
Patient no history coronary disease having stent placement to the RCA previously. The patient has some chest pain right arm pain as well as shortness of breath. He does have LV dysfunction. His echocardiogram done today with ejection fraction 25% with 2+ mitral regurgitation and moderately elevated right-sided pressures at 57 mmHg. Because of his chest pain known coronary disease and his troponin of 0.5 today we have been asked to care for cardiac catheterization. I have discussed heart catheterization the patient his reviewing indication procedure how would be carried out and the risk. Myopic heart catheterization note. I discussed cardiac catheterization and percutaneous coronary intervention with the patient and available family. I reviewed with them the indications for the procedure and the basis of how the procedure would be carried out. I also reviewed with them the risk of the procedure which include but not necessarily limited to access site bleeding, bruising, pain, swelling or vascular injury that may require emergency vascular surgery, blood transfusion, or thrombin injection. Also discussed the possibility of stroke, myocardial infarction, arrhythmia which may require electrocardioversion, and the possibility of dye reaction that would require medical therapy. Also discussed the possibility of coronary artery injury, ruptured, closure or perforation that may require emergency bypass surgery. We also discussed the possibility of from a major complication. They voice understanding and agree to proceed.
[2017-03-27] MEDS: FUROSEMIDE 40 MG/4 ML VIAL IV SCH ×2 (14:16→21:32)
[2017-03-27] MEDS: ASPIRIN EC 81 MG TABLET PO SCH (14:17)
[2017-03-27] MEDS: CLOPIDOGREL 75 MG TABLET PO SCH (14:20)
[2017-03-27] MEDS: PANTOPRAZOLE 40 MG TABLET PO SCH (14:21)
[2017-03-27] MEDS: CARVEDILOL 12.5 MG TABLET PO SCH ×2 (14:21→21:31)
[2017-03-27] MEDS ORDERED: SODIUM CHLORIDE 0.9% 1,000 ML IV SCH (14:30)
[2017-03-27] MEDS ORDERED: LIDOCAINE 1% 20 ML VIAL ONE (14:50)
[2017-03-27] MEDS ORDERED: MIDAZOLAM 2 MG/2 ML VIAL ONE (14:50)
[2017-03-27] MEDS ORDERED: fentaNYL 100 MCG/2 ML VIAL ONE (14:50)
--- NOTE | 2017-03-27 14:55 | History and Physical Update ---
Sedation H&P Update - History and Physical H&P was reviewed, the patient examined and there: are no changes in the patients condition since last H&P was completed. - Dictation Physical: refer to H&P completed by admitting physician - Physical Exam Mental Status: alert and oriented Heart: regular rate and rhythm Lung: clear to auscultation Abdomen: within normal limits Vitals: within normal limits History and Physical Changes: None - Sedation Plan for Sedation: moderate Patient Consent: Procedure disscussed with patient and patinet has consented., Risks and benefits were discussed with patient,including infection,, bleeding, injury to surrounding structures, seizure, temporary nerve, Patient understands and accepts potential risks/benefits and agrees to, proceed. ASA Class: III Airway Assessment: Class III: Soft palate, base of uvula visible
[2017-03-27] MEDS ORDERED: ENOXAPARIN 30 MG/0.3 ML SYRINGE ONE (15:16)
[2017-03-27] MEDS ORDERED: CLOPIDOGREL 300 MG TABLET ONE (15:17)
[2017-03-27] MEDS ORDERED: NITROGLYCERIN DRIP 50 MG/250 ML BOTTLE IV ONE (15:36)
--- NOTE | 2017-03-27 15:53 | Operative Note ---
Date of procedure: 03/27/17 Procedure Preformed: Left heart catheterization with LV gram and coronary angiography. PCI with stenting of the RCA. Surgeon / Physician: Edgardo Andrews Slot Floorperson: [place] Post-op diagnosis: same Findings: Restenosis in his prior RCA stent that extended beyond the as the stent. Successful stenting of the RCA. Please see full report Specimens: none sent Estimated blood loss: minimal Condition: stable Anesthesia: local, conscious sedation Disposition: floor
--- NOTE | 2017-03-27 15:59 | Cardiac Catheterization ---
Date of Procedure:: 03/27/17 Pre-op Diagnosis: Coronary disease with angina. Post-op diagnosis: same Procedure: LEFT HEART CATHERIZATION History: 76-year-old man with known coronary disease now with chest pain and angina. Prior stenting of his RCA. Pre-Op diagnosis: Anginal chest pain with known coronary disease. Postoperative diagnosis: Coronary disease post stenting of his RCA and intra- stent stenting. Procedures: 1. Left heart catheterization. 2. Left ventricular angiogram. 3. Selective left and right coronary angiograms. 4. Percutaneous coronary intervention with stents in RCA. 5.. Right common femoral artery angiogram with Angio-Seal hemostasis. Equipment: 6 Swiss arterial sheath, 6 Swiss diagnostic pigtail catheter, JL4 and JR4 diagnostic catheters. A 6 Swiss Angio-Seal hemostatic device. For percutaneous coronary intervention: JR4 PCI catheter with sideholes, PT choice extra support guidewire, 2.5 x 25 mm trek balloon, 2.5 x 33 mm Xience alpine ANGEL, 2.5 x 12 mm Xience alpine ANGEL, Xience 2.5 x 23 mm ANGEL. Medications: Preoperative Benadryl and Valium given by mouth. Lidocaine 1% local anesthesia 7 mls administered by myself. Intraprocedure patient received Versed 1 milligrams IVP, fentanyl 50 micrograms IVP, Dilaudid milligrams IVP. For PCI: Lovenox 16 mgms; Plavix 300 mg p.o. Intracoronary nitroglycerin 200 mcg the RCA. Complications: None immediate. Contrast: Omnipaque 208 milliliters. Description of procedure: After informed consent the patient was given preoperative medications and brought to the catheterization laboratory where their right groin was prepped and draped in usual fashion. IV sedation was then obtained after which local anesthesia was administered at the right groin over the right common femoral artery. Using modified Seldinger technique the right common femoral artery was cannulated with 6 Swiss arterial sheath placed. The pigtail catheter was then advanced through the sheath in a retrograde approach through the aorta to the aortic valve. The catheter was advanced through the aortic valve where left ventricular pressures were measured. The catheter was then pulled back into the aortic root and pressures measured. The catheter was then advanced across the aortic valve into the left ventricle where left ventricular angiogram was obtained in the right anterior oblique view. The pigtail catheter was then removed. The JL4 diagnostic coronary catheter was then advanced through the sheath in a retrograde approach and used to cannulate the left coronary artery of which angiograms were obtained in multiple projections. This catheter was then removed. The JR 4 diagnostic coronary catheter was then advanced retrograde through the aorta and used to cannulate the right coronary artery of which angiograms were obtained in multiple projections. This right coronary catheter was used to obtain selective left internal mammary artery angiogram. Angiograms were then reviewed. The right coronary catheter was removed. At this point intervention the RCA was carried out. We advanced a JR4 PCI guide catheter with sideholes through which the PT choice explore guidewire was advanced to the distal RCA. Over this a 2.5 x 25 mm trek balloon was advanced with an inflation of 8 lindsay for 18 seconds in the distal portion of the lesion followed by a 8 lindsay and 18 seconds inflation in the more proximal portion of the lesion. At this point angiograms were obtained. We exchanged the PTCA balloon catheter for a Alpine 2.5 x 33 mm stent since we did not have adequate results. A inflation and deployment of the stent at 14 lindsay for 25 seconds was carried out. We were unable to cover the entire area of disease and stenosis. Intracoronary nitroglycerin was given and we felt we just had a area proximal to the new stent that needed further intervention. We thus exchanged and placed a 2.5 x 12 mm alpine ANGEL and deployed this at 14 lindsay for 27 seconds. We had area proximal on post intervention angiogram and actually the curve of the vessel that appear to be dissected. We thus exchanged and advanced a Alpine 2.5 x 23 mm stent that was deployed at 16 lindsay for 35 seconds to cover from the ostium of the RCA into the last stent. This balloon was pulled back after completion and angiograms obtained and we had 0% residual stenosis with MADISON-3 flow in the vessel. Interventional equipment was all removed. Before removing the guide we use this inside the sheath obtain a right common femoral artery angiogram and Angio-Seal hemostasis was achieved. Hemodynamic data: LV 110/13, EDP 30; AO root 114/60, mean 81. Left ventricular angiogram: Left ventricle is upper limits of normal size if not mildly dilated with severe global hypokinesis ejection fraction less than 20 %. There is at least moderate mitral valve regurgitation noted. Aortic valve appeared to be a tricuspid structure. The thoracic aorta appears to be normal size and with calcification. Left main coronary artery angiogram: Left main coronary is without any stenosis , there is some mild calcification. This vessel bifurcates into the LAD and circumflex arteries. Left anterior descending artery angiogram: LAD is a medium caliber vessel proximally. There is diffuse proximal mid calcification. Diagonal branches are overall small caliber vessels. There is an area of the mid LAD that is 50- 70% stenosis. MADISON-3 flow appears to be present. Circumflex artery angiogram: Circumflex arteries a medium caliber vessel giving rise to a small caliber long first obtuse marginal branch, medium caliber second obtuse marginal branch that has multiple branches. Distally the cervix are gives rise to a third obtuse marginal branch. There is diffuse luminal irregularities and calcification in the cervix artery. Mid vessel there is at worst 50% stenosis. MADISON-3 flow was present. Right coronary artery angiogram: RCA is a small medium caliber vessel. The mid vessel has in-stent stenosis of up to 99%. There is MADISON I flow through this area to the distal RCA. There is left to right collateralization to the PDA. The very distal RCA just prior to the takeoff of the PDA has probably 50% stenosis. The PDA itself has diffuse disease up to 50% stenosis. PCI of RCA: Stenting the RCA mid and proximal to the ostium is carried out as noted above. The mid in-stent stenosis of 99% with MADISON I flow was dilated to 0 % residual stenosis and MADISON-3 flow. The disease more proximal to this area was probably initially less than 30% but appear to have a dissection or plaque rupture that required stenting to the ostium. Right common femoral artery angiogram: Right common femoral artery is patent successfully initial hemostasis. Impression: 1. Left ventricle is upper is normal size and not mildly dilated with severe LV dysfunction ejection fraction less than 20%. 2. LVEDP severely elevated at 30 mmHg. 3. There is at least moderate mitral valve regurgitation present. 4. Aortic valve appears to track obstruction without gradient. 5. Left main coronary is patent with minimal calcification. 6. The LAD with mid 50 to possibly 70% stenosis with calcification. It looks very similar to the prior films carried out over a year ago. 7. Circumflex artery disease diffuse mid calcification and 50% mid stenosis. 8. RCA with 99% mid in-stent stenosis and MADISON I flow. Distal 50% stenosis of the RCA. 9. Successful stenting of the mid and proximal RCA as described above with the 99% MADISON I in-stent stenosis of the RCA dilated 0% residual stenosis and MADISON-3 flow. 10. Right comfort arteries widely patent with successful Angio-Seal hemostasis. Discussion: We will marked this patient post procedure. Risk factor modification will be carried out and monitored. Patient will keep follow-up with Dr. Beaulieu. Implants: See above Anesthesia: local, moderate conscious sedation Surgeon / Physician: Edgardo Andrews Machine Lay Out Worker: other (RT Jennifer) Estimated blood loss: minimal Specimens: none sent Condition: stable Disposition: floor - Medications / Follow-up
--- NOTE | 2017-03-27 18:21 | Event Note ---
Patient is doing well post cardiac catheterization. He is a little sedate post catheterization. He is on dialysis at this time is stable. His is not present in his room or in the dialysis unit.
[2017-03-27] MEDS ORDERED: IRON SUCROSE 100 MG/5 ML VIAL IV SCH (19:00)
[2017-03-27] MEDS: SEVELAMER CARBONATE 800 MG TABLET PO SCH (21:30)
[2017-03-27] MEDS: PHENAZOPYRIDINE 95 MG TABLET PO SCH (21:30)
[2017-03-27] MEDS: DUTASTERIDE 0.5 MG CAPSULE PO SCH (21:31)
[2017-03-27] MEDS: TAMSULOSIN 0.4 MG CAPSULE PO SCH (21:31)
[2017-03-28 05:50] LABS: Calcium 8.3 MG/DL (8.5-10.1); Osmolality,Calculated 285.5 MOS/KG (273-304); Potassium 4.8 MMOL/L (3.5-5.1)
--- NOTE | 2017-03-28 07:01 | EKG Report ---
Stationary ECG Study [facility] Test Date: 03/28/2017 7:02:42 AM Pat Name: LOUIE ANDRES Department: Room: 265 Gender: M Frame Pulley Mortising Machine Operator: LULU : 1940 Requested by: Mumtaz Pacheco Order Number: [id number] Reading MD: ROSENDO MENDES Intervals [place] Rate: 90 P: 88 ID: [id number] QRS: 119 QRSD: 105 T: -57 QT: 372 QTc: 420 Interpretive Statements SINUS RHYTHM WITH OCCASIONAL VENTRICULAR PREMATURE COMPLEXES POSSIBLE RIGHT VENTRICULAR HYPERTROPHY LEFT VENTRICULAR HYPERTROPHY AND ST-T CHANGE MODERATE IVCD Electronically Signed On 03-29-17 07:48:19 CDT by ROSENDO MENDES [email or web address]
--- NOTE | 2017-03-28 07:36 | Nephrology Progress Note ---
Nephrology - PN: Subj Interval history: Patient states his breathing is better. Review of systems GI-he denies nausea or vomiting Physical exam general patient chronically ill-appearing Assessment/plan 1. End-stage renal disease-going to dialyze the patient and asked her treatment today to challenge his dry weight 2. Congestive heart failure-this patient had a left heart cath yesterday he had a stent placed and was noted to have an ejection fraction of around 20% or less he also had some valvular insufficiency 3. Hypertension this is controlled Exam (PN)-Nephrology - Vital Signs Vital signs: Period Temp Pulse Resp BP Sys/Mendoza Pulse Ox Last 24 Hr 97.2 F-97.6 F 72-98 17-20 98-121/44-71 92-99 - Lab 03/27/17 03:51 03/28/17 03:14 Most recent lab results Calcium 8.3 MG/DL (8.5-10.1) L 03/28/17 03:14 Magnesium 2.4 MG/DL (1.8-2.4) 03/28/17 03:14 Assessment and Plan (1) Congestive heart failure Status: Acute Assessment and plan: This patient has an elevated BNP and is having dyspnea at rest he has a long history of cardiomyopathy with an ejection fraction around 20% last year and moderate to severe mitral insufficiency. The patient is breathing better with supplemental O2 will plan on hemodialysis tomorrow. Current Visit: No (2) History of end stage renal disease Status: Chronic Assessment and plan: Hemodialysis tomorrow Current Visit: Yes (3) Secondary hyperparathyroidism Status: Acute Assessment and plan: We will continue his Renvela Current Visit: No (4) cardiomyopathy of undetermined etiology Status: Acute Current Visit: No (5) Coronary artery disease Status: Chronic Current Visit: Yes (6) Hypertension Status: Chronic Current Visit: Yes Qualifiers: Hypertension type: essential hypertension Qualified Code(s): I10 - Essential (primary) hypertension Specialty Discharge - Follow Up or Referrals
[2017-03-28 07:50] LABS: Basophils % 0.3 % (0.0-0.8); Eosinophils # 0.1 10*3/uL (0.0-0.87); Eosinophils % 2.1 % (0.00-10.9); Hematocrit 30.1 VOL% (42.0-52.0); Hemoglobin 9.6 GM/DL (14.0-18.0); Immature Granulocytes % 0.6 %; Immature Granulocytes Absolute 0.04 #; Lymphocytes # 0.9 10*3/uL (1.4-4.0); Lymphocytes % 13.8 % (21.2-54.2); Mean Corpuscular HGB Conc 31.9 GM/DL (32-36); Mean Corpuscular Hemoglobin 34 PG (27-34); Mean Platelet Volume 11.3 FL (9.6-12.0); Monocytes # 0.7 10*3/uL (0.11-0.8); Monocytes % 9.9 % (1.7-12.7); NRBC # 0.12 10*3/uL; Neutrophils # 4.8 10*3/uL (1.4-7.4); Neutrophils % 73.3 % (38.7-73.9); Platelet Count 145 T/CUMM (130-400); Red Blood Count 2.84 MC/CUMM (3.8-5.5); Red Cell Distribution Width 14.3 % (9.3-17.3); White Blood Count 6.6 T/CUMM (4-12)
[2017-03-28 08:18] LABS: Platelet Estimate Adequate
--- NOTE | 2017-03-28 11:00 | Hospitalist Progress Note ---
Assessment and Plan - Time spent with patient Time spent with patient: Less than 30 minutes (1) Congestive heart failure Status: Acute Assessment and plan: Mr. Hudson is a 76-year-old white male with history of hypertension, end-stage renal disease on HD, coronary artery disease, and congestive heart failure admitted by the hospitalist service on 03/26/2017 with acute exacerbation of congestive heart failure. Patient had mildly elevated troponin and elevated BNP. His fluid has been restricted and he has been receiving Lasix IV. Nephrology and cardiology are following. Dr. Marlow to see and examined patient and further recommendations to follow. Acute CHF--patient is receiving 40 mg IV Lasix twice daily. He is also to undergo hemodialysis today which should help. Patient is breathing much easier and his lungs are clear though his BNP this morning shows greater than 5000. CAD--cardiology is following. They have discontinued his atenolol and started Coreg which is better for his cardiomyopathy. They were to continue his Plavix. There are also checking cardiac isoenzymes and EKGs for MT. If MT is negative they recommend outpatient treadmill/Cardiolite with Dr. Beaulieu. Echo has been ordered and looks like it was done but [facility] End-stage renal disease on HD--nephrology is following and will monitor patient' s dry body weight. Cardiology wants to consider adding a low-dose SYBIL inhibitor if okay with nephrology. 03/28/2017 patient undergoing dialysis again today per Dr. Gagnon. Patient underwent left heart cath by Dr. Andrews yesterday and seems to be doing well following this. He had a left ventricular ejection fraction of 20% with a moderate mitral valve regurg and stents placed in the mid and proximal RCA. Patient's mag was normal this morning. Patient is still having some burning with urination and mild hematuria. We will go ahead make sure he gets some Pyridium for comfort and will check a UA. We will also recheck a CBC and BMP along with a mag in the morning. Disposition to home when okay with cardiology and nephrology. Patient's case has been discussed with Dr. Marlow and further recommendations to follow. Current Visit: No (2) End stage renal disease Status: Chronic Current Visit: No (3) Polycystic kidney disease Status: Chronic Current Visit: No (4) Hypertension Status: Chronic Current Visit: Yes Qualifiers: Qualified Code(s): I10 - Essential (primary) hypertension (5) Coronary artery disease Status: Chronic Current Visit: Yes Hospitalist: Subjective Interval history: Patient seen and examined during hemodialysis. Patient is feeling much better today. He states he is breathing easier without any difficulty. He is still having some burning with urination but is unaware of receiving any Pyridium yesterday. Exam - Constitutional Vitals: Period Temp Pulse Resp BP Sys/Mendoza Pulse Ox Last 24 Hr 97.3 F-98 F 72-98 17-20 98-141/44-71 92-99 Exam: 76-year-old white male, no acute distress, alert and oriented Seen on HD Chest clear CV regular rate and rhythm Abdomen soft and nontender Extremities no edema Results - Labs CBC & BMP: 03/28/17 07:03 03/28/17 03:14 Lab Results: I have reviewed the past 24 hour labs Quality Measures - VTE Contraindication to Pharmacological VTE Prophylaxis: High Risk of Bleeding Specialty Discharge - Follow Up or Referrals
[2017-03-28 12:59] VITALS: BP 142/60
[2017-03-28] MEDS: SEVELAMER CARBONATE 800 MG TABLET PO SCH (13:31)
[2017-03-28] MEDS: PANTOPRAZOLE 40 MG TABLET PO SCH (13:32)
[2017-03-28] MEDS: DUTASTERIDE 0.5 MG CAPSULE PO SCH (13:32)
[2017-03-28] MEDS: CLOPIDOGREL 75 MG TABLET PO SCH (13:32)
[2017-03-28] MEDS: CARVEDILOL 12.5 MG TABLET PO SCH (13:32)
[2017-03-28] MEDS: ASPIRIN EC 81 MG TABLET PO SCH (13:32)
[2017-03-28] MEDS: TAMSULOSIN 0.4 MG CAPSULE PO SCH (13:33)
[2017-03-28] MEDS: FUROSEMIDE 40 MG/4 ML VIAL IV SCH (13:33)
[2017-03-28] MEDS: PHENAZOPYRIDINE 95 MG TABLET PO SCH (13:33)
--- NOTE | 2017-03-28 13:36 | Cardiology Progress Note ---
I, Tamy Cash, RN, am scribing for, and in the presence of, Bong Marlow MD 13 :36. <Bong Marlow - Last Filed: 03/28/17 13:35> Assessment and Plan (1) Ischemic cardiomyopathy Status: Chronic Assessment and plan: Initial assessment and plan 03/27/2017: 1. 76-year-old with controlled hypertension, dyslipidemia, ESRD, known severe ischemic cardiomyopathy with moderate MR status post mid RCA stenting by Dr. Beaulieu March 2016, now presents with 2 months of intermittent cough and dyspnea , having a 30 minutes of chest discomfort "like what I had before my stent", troponin elevation to 0.5 today 2. I believe left heart catheterization will be the best way to evaluate for in -stent restenosis or new CAD 3. His EF is severely reduced on echo today but not much different than March 2016 (20% EF today) 4. Dr. Andrews will perform heart catheterization; the patient is agreeable to this. It may be best to use right groin access given he has old hemodialysis grafts in his left arm, now has a temporary in his right subclavian. Assessment and plan 03/28/2017: Current Visit: Yes (2) Chest pain Status: Acute Current Visit: Yes (3) History of end stage renal disease Status: Chronic Current Visit: Yes (4) Systolic congestive heart failure Status: Chronic Current Visit: Yes (5) Coronary artery disease Status: Chronic Current Visit: Yes (6) Hypertension Status: Chronic Current Visit: Yes Qualifiers: Hypertension type: essential hypertension Qualified Code(s): I10 - Essential (primary) hypertension Cardiology - PN: Subj Interval history: Cardiology: Dr. Tobi Beaulieu Coil Machine Operator: Dr. Jeremy Skaggs PCP: Dr. Bon Lau Mr. Hudson is seen while on dialysis today. He denies any chest pain, palpitations, or dizziness. Oxygen oxygen is in use via nasal cannula, he reports his breathing is doing well. Heart cath done by Dr. Andrews yesterday with the following findings: 1. Left ventricle is upper is normal size and not mildly dilated with severe LV dysfunction ejection fraction less than 20%. 2. LVEDP severely elevated at 30 mmHg. 3. There is at least moderate mitral valve regurgitation present. 4. Aortic valve appears to track obstruction without gradient. 5. Left main coronary is patent with minimal calcification. 6. The LAD with mid 50 to possibly 70% stenosis with calcification. It looks very similar to the prior films carried out over a year ago. 7. Circumflex artery disease diffuse mid calcification and 50% mid stenosis. 8. RCA with 99% mid in-stent stenosis and MADISON I flow. Distal 50% stenosis of the RCA. 9. Successful stenting of the mid and proximal RCA as described above with the 99% MADISON I in-stent stenosis of the RCA dilated 0% residual stenosis and MADISON-3 flow. 10. Right comfort arteries widely patent with successful Angio-Seal hemostasis. Right groin is soft without evidence of bleeding or hematoma, no bruit noted. He denies pain down his leg and has weak but palpable pedal pulses. Vital signs have been stable. EKG this morning with sinus rhythm with occasional PVCs , heart rate of 90. His creatinine this morning was down to 6, he is currently dialyzing. Exam (Progress Note) - Constitutional Vitals: Period Temp Pulse Resp BP Sys/Mendoza Pulse Ox Last 24 Hr 97.3 F-98 F 72-98 17-20 98-141/44-71 92-99 General appearance: normal weight, no acute distress - Head Head exam: Absent: abrasion, hematoma - Eye Eye exam: Absent: periorbital swelling, laceration to eyelids - Respiratory Respiratory exam: Present: clear to auscultation bilaterally, other (Oxygen via nasal cannula). Absent: accessory muscle use, chest wall tenderness - Cardiovascular Cardiovascular exam: Present: regular rate and rhythm - GI/Abdominal GI/Abdominal exam: Present: normal bowel sounds, soft. Absent: distended, tenderness - Extremities Exam Extremities exam: Present: other (Right groin soft without bleeding or hematoma) . Absent: edema - Neurological Exam Neurological exam: Present: alert, oriented X3 - Psychiatric Psychiatric exam: Present: normal affect, normal mood - Skin Skin exam: Present: warm, dry Result/EKG - Labs CBC & BMP: 03/28/17 07:03 03/28/17 03:14 Lab Results: I have reviewed the past 24 hour labs Labs: Laboratory Results - last 24 hr 03/28/17 03/28/17 03/28/17 03:14 03:14 07:03 WBC 6.6 D RBC 2.84 L Hgb 9.6 L Hct 30.1 L MCV 106.0 H MCH 34 MCHC 31.9 L RDW 14.3 Plt Count 145 MPV 11.3 Neut % (Auto) 73.3 Lymph % (Auto) 13.8 L Kings % (Auto) 9.9 Eos % (Auto) 2.1 Baso % (Auto) 0.3 Neut # (Auto) 4.8 Lymph # (Auto) 0.9 L Kings # (Auto) 0.7 Eos # (Auto) 0.1 Baso # (Auto) 0.0 Immature Gran % 0.6 Nucleated RBC % 1.8 Immature Gran # 0.04 Nucleated RBCs # 0.12 Platelet Estimate Adequate Sodium 139 Potassium 4.8 Chloride 100 Carbon Dioxide 27 Anion Gap 16.8 H BUN 36 H D Creatinine 6.00 H GFR Calculation 9 BUN/Creatinine Ratio 6.00 Glucose 108 H Calculated Osmolality 285.5 Calcium 8.3 L Magnesium 2.4 - EKG EKG results: interpreted by me EKG shows: sinus rhythm Quality Measures - VTE Contraindication to Pharmacological VTE Prophylaxis: High Risk of Bleeding Specialty Discharge - Follow Up or Referrals Follow up with: Rodger Beaulieu MD [Physician] - 2 Weeks (With FLP CMP CBC EKG) <Berhane Hussein - Last Filed: 03/28/17 16:02> Assessment and Plan (1) Ischemic cardiomyopathy Status: Chronic Assessment and plan: March 28, 2017: 1. Mr. Hudson feels dramatically better after stenting of his critical right coronary disease. We discussed taking his baby aspirin Plavix without fail 2. Right groin access site is without bleeding bruit or hematoma; discussed avoiding squatting strain or lifting for the next 6 days. 3. He is anxious for discharge, and I think this is reasonable; will try to schedule follow-up with Dr. Beaulieu the next 2 weeks 4. Severe ischemic cardiomyopathy as noted previously Current Visit: Yes (2) Chest pain Status: Acute Current Visit: Yes (3) History of end stage renal disease Status: Chronic Current Visit: Yes (4) Systolic congestive heart failure Status: Chronic Current Visit: Yes (5) Coronary artery disease Status: Chronic Current Visit: Yes (6) Hypertension Status: Chronic Current Visit: Yes Qualifiers: Hypertension type: essential hypertension Qualified Code(s): I10 - Essential (primary) hypertension Exam (Progress Note) - Constitutional Vitals: Period Temp Pulse Resp BP Sys/Mendoza Pulse Ox Last 24 Hr 97.3 F-98 F 72-92 17-20 98-142/44-71 92-99 Result/EKG - Labs CBC & BMP: 03/28/17 07:03 03/28/17 03:14 Labs: Laboratory Results - last 24 hr 03/28/17 03/28/17 03/28/17 03:14 03:14 07:03 WBC 6.6 D RBC 2.84 L Hgb 9.6 L Hct 30.1 L MCV 106.0 H MCH 34 MCHC 31.9 L RDW 14.3 Plt Count 145 MPV 11.3 Neut % (Auto) 73.3 Lymph % (Auto) 13.8 L Kings % (Auto) 9.9 Eos % (Auto) 2.1 Baso % (Auto) 0.3 Neut # (Auto) 4.8 Lymph # (Auto) 0.9 L Kings # (Auto) 0.7 Eos # (Auto) 0.1 Baso # (Auto) 0.0 Immature Gran % 0.6 Nucleated RBC % 1.8 Immature Gran # 0.04 Nucleated RBCs # 0.12 Platelet Estimate Adequate Sodium 139 Potassium 4.8 Chloride 100 Carbon Dioxide 27 Anion Gap 16.8 H BUN 36 H D Creatinine 6.00 H GFR Calculation 9 BUN/Creatinine Ratio 6.00 Glucose 108 H Calculated Osmolality 285.5 Calcium 8.3 L Magnesium 2.4 Kashmir Cortés Bruce, MD, personally performed the services described in this documentation, ascribed by Tamy Cash RN in my presence, and it is both accurate and complete [id number] .
[2017-03-28] MEDS ORDERED: ATORVASTATIN 40 MG TABLET PO SCH (15:30)
--- NOTE | 2017-03-28 16:44 | Discharge Summary ---
Hospital Course - Hospital Course Hospital Course: The patient was admitted to the hospital with chest discomfort. The patient has history of end-stage renal disease and takes dialysis 3 times weekly. His primary care physician is Dr. Carrizales in [place]. The patient was taken to the cardiac [facility] and a stent was placed in the right coronary artery. The patient had dialysis following the PTCA. The patient is improved and not have any angina. He is now discharged home and was given instruction to be careful to take Plavix and aspirin daily. The patient will follow up with Dr. Beaulieu in 2 weeks. On the date of discharge, chest clear, heart has regular rate and rhythm, abdomen soft. Time required for total [id number] encounter today 32 minutes - Time spent with patient Time with patient DS: Greater than 30 minutes Diagnosis - Discharge Diagnosis (1) Ischemic cardiomyopathy Status: Chronic (2) Chest pain Status: Resolved (3) History of end stage renal disease Status: Chronic (4) Systolic congestive heart failure Status: Chronic (5) Coronary artery disease Status: Chronic (6) Hypertension Status: Chronic Specialty Discharge - Follow Up or Referrals Follow up with: Rodger Beaulieu MD [Physician] - 2 Weeks (04/17 @220pm be there at 130 for labwork FLP CMP CBC EKG) Discharge Plan - Discharge Data Disposition: Disch To Home/Self Care Condition at Discharge: Stable Discharge Diet: heart healthy Activity: resume usual activities as tolerated, no lifting (For 2 weeks) - Discharge Medications Continue Dutasteride/Tamsulosin HCl [Kathy] 1 capsule PO DAILY Carvedilol [Coreg] 3.125 mg PO BID Sevelamer Carbonate Tab [Renvela Tab] 800 mg PO DAILY Calcium Carb/Magnesium Hydrox [Rolaids Chewable Tablet] 1 each PO TID W/MEALS Nitroglycerin 0.4 mg SL DIRECTED Aspirin [Ecotrin] 81 mg PO DAILY #100 Clopidogrel [Plavix] 75 mg PO DAILY #90 tablet - Follow Up or Referral Follow Up: Rodger Beaulieu MD [Physician] - 2 Weeks (04/17 @220pm be there at 130 for labwork FLP CMP CBC EKG) - Forms/Instructions Instructions: Coronary Artery Disease (GEN), Left Heart Catheterization (DC), Heart Healthy Diet (GEN), Coronary Intravascular Stent Placement (DC) Exam - Constitutional Vitals: Period Temp Pulse Resp BP Sys/Mendoza Pulse Ox Last 24 Hr 97.3 F-98 F 72-92 18-20 98-142/44-71 92-99 Discharge Results Procedures and tests throughout hospitalization: Pending Orders 03/28/17 10:54 UA [Urinalysis] Stat 03/29/17 04:00 Basic Metabolic Panel IN AM Comp Blood Count Auto Diff IN AM Magnesium IN AM Labs on day of discharge: Labs from last 24 hours 03/28/17 03/28/17 03/28/17 07:03 03:14 03:14 WBC 6.6 D RBC 2.84 L Hgb 9.6 L Hct 30.1 L MCV 106.0 H MCH 34 MCHC 31.9 L RDW 14.3 Plt Count 145 MPV 11.3 Neut % (Auto) 73.3 Lymph % (Auto) 13.8 L Humphreys % (Auto) 9.9 Eos % (Auto) 2.1 Baso % (Auto) 0.3 Neut # (Auto) 4.8 Lymph # (Auto) 0.9 L Humphreys # (Auto) 0.7 Eos # (Auto) 0.1 Baso # (Auto) 0.0 Immature Gran % 0.6 Nucleated RBC % 1.8 Immature Gran # 0.04 Nucleated RBCs # 0.12 Platelet Estimate Adequate Sodium 139 Potassium 4.8 Chloride 100 Carbon Dioxide 27 Anion Gap 16.8 H BUN 36 H D Creatinine 6.00 H GFR Calculation 9 BUN/Creatinine Ratio 6.00 Glucose 108 H Calculated Osmolality 285.5 Calcium 8.3 L Magnesium 2.4 DS: Provider Date of admission: 03/26/17 12:30 Primary care physician: Bon Lau Attending physician on admission: Dustin Wiggins MD Consults: 03/26/17 14:05 Consult to Physician [CONS] Routine Comment: Consulting Provider: Edgardo Gagnon Consulting Provider Notified: Yes Person Notified: Dr. Gagnon Date Notified: 03/26/17 Time Notified: 15:10 Consult Notification Comment: Notified Pt known to him 03/26/17 15:04 Consult to Physician [CONS] Routine Comment: Consulting Provider: Rodger Beaulieu Consulting Provider Notified: Yes Person Notified: Junior Date Notified: 03/26/17 Time Notified: 16:04 Consult Notification Comment: MD aware 03/27/17 15:54 Consult to Cardiac Rehabilitation [CONS] Routine Reason for Cardiac Rehabilitation: Risk Factor Modification Discharging clinician: Bong Marlow MD
[2017-03-28] MEDS ORDERED: LISINOPRIL 2.5 MG TABLET PO SCH (21:00)
== END 2017-03-28 17:37 | disposition home or self-care (01) | DRG 246 ==
LOC: EDUNIT# → EDBD → N.ED 11:50 → N.EDINP 12:30 → SUATTDRO 12:30 → N.EDINP 14:45 → N.TELES 15:02
PROVIDERS: ADMIT Internal Medicine; ATTEND Internal Medicine
PROC: CLCCHCL (ICD-10-PCS; 2017-03-27 15:15)

== ENCOUNTER 2017-09-14 08:53 | Inpatient (IN) ==
[2017-09-14] MEDS ORDERED: ZALEPLON 5 MG CAPSULE PO PRN (09:13)
[2017-09-14] MEDS ORDERED: MAGNESIUM HYDROXIDE SUSP 30 ML UDCUP PO PRN (09:13)
[2017-09-14] MEDS ORDERED: ACETAMINOPHEN 325 MG TABLET PO PRN (09:13)
[2017-09-14] MEDS ORDERED: ONDANSETRON 4 MG/2 ML VIAL IV PRN (09:13)
[2017-09-14] MEDS ORDERED: MAGNESIUM SULF RIDER 2 GM in PREMIX 1 EACH IV PRN (09:13)
[2017-09-14] MEDS ORDERED: POTASSIUM CHLORIDE 20 MEQ TABLET PO PRN (09:13)
[2017-09-14] MEDS ORDERED: BISACODYL 5 MG TABLET PO PRN (09:13)
[2017-09-14] MEDS ORDERED: MORPHINE 2 MG/1 ML SYRINGE IV PRN (09:13)
[2017-09-14 14:50] LABS: Basophils % 0.4 % (0.0-0.8); Eosinophils # 0.1 10*3/uL (0.0-0.87); Eosinophils % 1.5 % (0.00-10.9); Hematocrit 34.2 VOL% (42.0-52.0); Immature Granulocytes % 2.1 %; Lymphocytes # 1.7 10*3/uL (1.4-4.0); Lymphocytes % 18.1 % (21.2-54.2); Mean Corpuscular HGB Conc 32.2 GM/DL (32-36); Mean Corpuscular Hemoglobin 35 PG (27-34); Mean Corpuscular Volume 108.2 FL (87-102); Mean Platelet Volume 10.4 FL (9.6-12.0); Monocytes # 0.6 10*3/uL (0.11-0.8); Monocytes % 6.4 % (1.7-12.7); Neutrophils # 6.9 10*3/uL (1.4-7.4); Neutrophils % 71.5 % (38.7-73.9); Platelet Count 228 T/CUMM (130-400); Red Blood Count 3.16 MC/CUMM (3.8-5.5); Red Cell Distribution Width 14.6 % (9.3-17.3); White Blood Count 9.6 T/CUMM (4-12)
[2017-09-14 15:09] LABS: INR 1.1; PT Patient Result 11.1 SECS
[2017-09-14 15:14] LABS: Albumin 3.2 G/DL (3.4-5.0); Bilirubin,Total 0.4 MG/DL (0.2-1.0); Osmolality,Calculated 296.5 MOS/KG (273-304); Potassium 3.8 MMOL/L (3.5-5.1); Total Protein 6.6 G/DL (6.4-8.3)
[2017-09-14] MEDS: PANTOPRAZOLE 40 MG TABLET PO SCH (16:06)
[2017-09-14] MEDS: NITROGLYCERIN 2% OINT 1 INCH/GM PACK TOP SCH ×2 (16:06→17:33)
[2017-09-14] MEDS: ENOXAPARIN 30 MG/0.3 ML SYRINGE SUBCUT SCH (16:06)
[2017-09-14] MEDS ORDERED: ALBUTEROL/IPRATROPIUM 3 ML NEB RESP TX PRN (18:41)
[2017-09-15] MEDS: NITROGLYCERIN 2% OINT 1 INCH/GM PACK TOP SCH ×4 (00:45→19:01)
[2017-09-15 05:56] LABS: Basophils # 0.1 10*3/uL (0.0-0.2); Basophils % 0.5 % (0.0-0.8); Eosinophils # 0.2 10*3/uL (0.0-0.87); Eosinophils % 1.7 % (0.00-10.9); Hematocrit 30.9 VOL% (42.0-52.0); Hemoglobin 10.1 GM/DL (14.0-18.0); Immature Granulocytes % 2.3 %; Immature Granulocytes Absolute 0.21 #; Mean Corpuscular HGB Conc 32.7 GM/DL (32-36); Mean Corpuscular Hemoglobin 35 PG (27-34); Mean Corpuscular Volume 106.6 FL (87-102); Mean Platelet Volume 10.9 FL (9.6-12.0); Monocytes # 0.7 10*3/uL (0.11-0.8); Monocytes % 7.6 % (1.7-12.7); Neutrophils # 6.2 10*3/uL (1.4-7.4); Neutrophils % 66.9 % (38.7-73.9); Platelet Count 202 T/CUMM (130-400); Red Cell Distribution Width 14.6 % (9.3-17.3); White Blood Count 9.3 T/CUMM (4-12)
[2017-09-15] MEDS ORDERED: diphenhydrAMINE CAP 25 MG CAPSULE PO ONE (06:00)
[2017-09-15] MEDS ORDERED: DIAZEPAM 5 MG TABLET PO ONE (06:00)
[2017-09-15 06:26] LABS: INR 1.1; PT Patient Result 11.2 SECS
[2017-09-15 06:33] LABS: Calcium 8.8 MG/DL (8.5-10.1); Magnesium 2.4 MG/DL (1.8-2.4); Osmolality,Calculated 299.5 MOS/KG (273-304); Potassium 4.4 MMOL/L (3.5-5.1)
[2017-09-15 06:38] LABS: Albumin 2.8 G/DL (3.4-5.0); Bilirubin,Total 0.6 MG/DL (0.2-1.0); Calcium 8.9 MG/DL (8.5-10.1); Osmolality,Calculated 299.5 MOS/KG (273-304); Potassium 4.4 MMOL/L (3.5-5.1); Risk Ratio 4.94; Total Protein 5.9 G/DL (6.4-8.3)
[2017-09-15] MEDS: PANTOPRAZOLE 40 MG TABLET PO SCH (10:05)
[2017-09-15] MEDS: methylPREDNISolone SOD SUC 40 MG/1 ML VIAL IV SCH ×2 (11:03→21:59)
[2017-09-15] MEDS ORDERED: LIDOCAINE 1% 20 ML VIAL ONE (11:23)
[2017-09-15] MEDS ORDERED: HEPARIN/NACL 0.9% 2 UNITS/ML 1,000 ML IV ONE (11:23)
[2017-09-15] MEDS ORDERED: HYDROmorphone 2 MG/1 ML VIAL ONE (11:44)
[2017-09-15] MEDS ORDERED: MIDAZOLAM 2 MG/2 ML VIAL ONE (11:45)
[2017-09-15] MEDS ORDERED: VERAPAMIL 5 MG/2 ML VIAL ONE (11:56)
[2017-09-15] MEDS ORDERED: NITROGLYCERIN DRIP 50 MG/250 ML BOTTLE IV ONE (11:56)
[2017-09-15] MEDS ORDERED: NITROGLYCERIN SL 0.4 MG TABLET SL PRN (13:00)
[2017-09-15] MEDS ORDERED: LIDOCAINE/PRILOCAINE CREAM 5 GM TUBE TOP ONE (14:10)
[2017-09-15] MEDS: SEVELAMER CARBONATE 800 MG TABLET PO SCH (17:43)
[2017-09-15] MEDS: CALCIUM CARBONATE CHEW 500 MG TABLET PO SCH (17:43)
[2017-09-15] MEDS: ENOXAPARIN 30 MG/0.3 ML SYRINGE SUBCUT SCH (18:55)
[2017-09-15] MEDS: RANOLAZINE 500 MG TABLET PO SCH (21:59)
[2017-09-16] MEDS: NITROGLYCERIN 2% OINT 1 INCH/GM PACK TOP SCH ×2 (01:16→07:50)
[2017-09-16 04:00] LABS: Basophils % 0.3 % (0.0-0.8); Eosinophils % 0.1 % (0.00-10.9); Hematocrit 33.3 VOL% (42.0-52.0); Immature Granulocytes % 1.7 %; Immature Granulocytes Absolute 0.19 #; Mean Corpuscular Hemoglobin 35 PG (27-34); Mean Corpuscular Volume 105.4 FL (87-102); Mean Platelet Volume 10.8 FL (9.6-12.0); Monocytes # 0.4 10*3/uL (0.11-0.8); Monocytes % 3.7 % (1.7-12.7); Neutrophils # 9.7 10*3/uL (1.4-7.4); Neutrophils % 85.2 % (38.7-73.9); Platelet Count 204 T/CUMM (130-400); Red Blood Count 3.16 MC/CUMM (3.8-5.5); Red Cell Distribution Width 14.7 % (9.3-17.3); White Blood Count 11.4 T/CUMM (4-12)
[2017-09-16] MEDS: methylPREDNISolone SOD SUC 40 MG/1 ML VIAL IV SCH ×3 (04:19→18:10)
[2017-09-16 05:03] LABS: Calcium 9.4 MG/DL (8.5-10.1); Potassium 5.2 MMOL/L (3.5-5.1)
[2017-09-16] MEDS: SEVELAMER CARBONATE 800 MG TABLET PO SCH ×3 (08:39→16:53)
[2017-09-16] MEDS: CALCIUM CARBONATE CHEW 500 MG TABLET PO SCH ×3 (08:40→16:54)
[2017-09-16] MEDS: PANTOPRAZOLE 40 MG TABLET PO SCH (08:40)
[2017-09-16] MEDS: ISOSORBIDE MONONITRATE 30 MG TABLET PO SCH (08:40)
[2017-09-16] MEDS: RANOLAZINE 500 MG TABLET PO SCH ×2 (08:40→21:01)
[2017-09-16] MEDS: LORATADINE 10 MG TABLET PO SCH (08:40)
[2017-09-16] MEDS: TAMSULOSIN 0.4 MG CAPSULE PO SCH (08:41)
[2017-09-16] MEDS: ASPIRIN EC 81 MG TABLET PO SCH (08:41)
[2017-09-16] MEDS: DUTASTERIDE 0.5 MG CAPSULE PO SCH (08:41)
[2017-09-16] MEDS: ENOXAPARIN 30 MG/0.3 ML SYRINGE SUBCUT SCH (16:54)
[2017-09-17] MEDS: methylPREDNISolone SOD SUC 40 MG/1 ML VIAL IV SCH ×3 (04:00→18:17)
[2017-09-17] MEDS ORDERED: DEXTROSE 50% 25 GM/50 ML VIAL IV PRN (08:30)
[2017-09-17] MEDS ORDERED: GLUCAGON 1 MG VIAL IM PRN (08:30)
[2017-09-17] MEDS: SEVELAMER CARBONATE 800 MG TABLET PO SCH ×3 (08:56→16:30)
[2017-09-17] MEDS: ASPIRIN EC 81 MG TABLET PO SCH (08:56)
[2017-09-17] MEDS: CALCIUM CARBONATE CHEW 500 MG TABLET PO SCH ×3 (08:56→16:30)
[2017-09-17] MEDS: DUTASTERIDE 0.5 MG CAPSULE PO SCH (08:56)
[2017-09-17] MEDS: TAMSULOSIN 0.4 MG CAPSULE PO SCH (08:56)
[2017-09-17] MEDS: RANOLAZINE 500 MG TABLET PO SCH ×2 (08:56→21:54)
[2017-09-17] MEDS: LORATADINE 10 MG TABLET PO SCH (08:57)
[2017-09-17] MEDS: ROSUVASTATIN 20 MG TABLET PO SCH (08:57)
[2017-09-17] MEDS: ISOSORBIDE MONONITRATE 30 MG TABLET PO SCH (08:57)
[2017-09-17] MEDS: PANTOPRAZOLE 40 MG TABLET PO SCH (08:57)
[2017-09-17] MEDS ORDERED: CHLORHEXIDINE 4% SOLN 118 ML BOTTLE TOP SCH (09:00)
[2017-09-17] MEDS: CHLORHEXIDINE 0.12% ORAL RINSE 60 ML BOTTLE SWISH/SPIT SCH ×2 (10:10→21:00)
[2017-09-17] MEDS: ENOXAPARIN 30 MG/0.3 ML SYRINGE SUBCUT SCH (16:31)
[2017-09-17] MEDS: SODIUM CHLORIDE 0.9% 1,000 ML IV SCH (16:52)
[2017-09-18] MEDS: methylPREDNISolone SOD SUC 40 MG/1 ML VIAL IV SCH ×3 (03:50→21:25)
[2017-09-18 03:58] LABS: ABG HCO3 22.8 MMOL/L (20-26); ABG PCO2 30.1 MM HG (35-48); ABG PH 7.454 (7.35-7.45); ABG TCO2 18.9 MMOL/L (23-27)
[2017-09-18 05:29] LABS: Basophils % 0.1 % (0.0-0.8); Hemoglobin 10.6 GM/DL (14.0-18.0); Immature Granulocytes % 2.1 %; Immature Granulocytes Absolute 0.27 #; Lymphocytes # 0.9 10*3/uL (1.4-4.0); Lymphocytes % 7.2 % (21.2-54.2); Mean Corpuscular HGB Conc 33.1 GM/DL (32-36); Mean Corpuscular Hemoglobin 35 PG (27-34); Mean Corpuscular Volume 104.6 FL (87-102); Mean Platelet Volume 10.5 FL (9.6-12.0); Monocytes # 0.7 10*3/uL (0.11-0.8); Monocytes % 5.5 % (1.7-12.7); Neutrophils # 10.9 10*3/uL (1.4-7.4); Neutrophils % 85.1 % (38.7-73.9); Platelet Count 245 T/CUMM (130-400); Red Blood Count 3.06 MC/CUMM (3.8-5.5); Red Cell Distribution Width 14.8 % (9.3-17.3); White Blood Count 12.8 T/CUMM (4-12)
[2017-09-18 05:48] LABS: Albumin 3.1 G/DL (3.4-5.0); Bilirubin,Total 0.7 MG/DL (0.2-1.0); Calcium 9.9 MG/DL (8.5-10.1); Osmolality,Calculated 306.5 MOS/KG (273-304); Total Protein 6.3 G/DL (6.4-8.3)
[2017-09-18 05:51] LABS: Potassium 6.6 MMOL/L (3.5-5.1)
[2017-09-18] MEDS: CALCIUM CARBONATE CHEW 500 MG TABLET PO SCH ×3 (09:10→17:03)
[2017-09-18] MEDS: SEVELAMER CARBONATE 800 MG TABLET PO SCH ×3 (09:10→17:03)
[2017-09-18] MEDS: PANTOPRAZOLE 40 MG TABLET PO SCH (10:25)
[2017-09-18] MEDS: ISOSORBIDE MONONITRATE 30 MG TABLET PO SCH (10:25)
[2017-09-18] MEDS: ASPIRIN EC 81 MG TABLET PO SCH (10:25)
[2017-09-18] MEDS: DUTASTERIDE 0.5 MG CAPSULE PO SCH (10:25)
[2017-09-18] MEDS: ROSUVASTATIN 20 MG TABLET PO SCH (10:25)
[2017-09-18] MEDS: RANOLAZINE 500 MG TABLET PO SCH ×2 (10:25→21:25)
[2017-09-18] MEDS: TAMSULOSIN 0.4 MG CAPSULE PO SCH (10:25)
[2017-09-18] MEDS: LORATADINE 10 MG TABLET PO SCH (10:25)
[2017-09-18] MEDS: SODIUM CHLORIDE 0.9% 1,000 ML IV SCH (10:28)
[2017-09-18] MEDS: CHLORHEXIDINE 0.12% ORAL RINSE 60 ML BOTTLE SWISH/SPIT SCH ×2 (10:28→21:28)
[2017-09-18] MEDS ORDERED: LOPERAMIDE 2 MG CAPSULE PO PRN (14:03)
[2017-09-18] MEDS: ENOXAPARIN 30 MG/0.3 ML SYRINGE SUBCUT SCH (15:00)
[2017-09-18] MEDS ORDERED: diphenhydrAMINE CAP 25 MG CAPSULE PO PRN (16:31)
[2017-09-19 04:54] LABS: Basophils % 0.1 % (0.0-0.8); Eosinophils % 0.2 % (0.00-10.9); Hematocrit 30.9 VOL% (42.0-52.0); Immature Granulocytes % 1.1 %; Immature Granulocytes Absolute 0.15 #; Lymphocytes # 1.5 10*3/uL (1.4-4.0); Lymphocytes % 11.1 % (21.2-54.2); Mean Corpuscular HGB Conc 32.4 GM/DL (32-36); Mean Corpuscular Hemoglobin 34 PG (27-34); Mean Corpuscular Volume 105.8 FL (87-102); Mean Platelet Volume 10.6 FL (9.6-12.0); Monocytes % 7.6 % (1.7-12.7); Neutrophils # 10.8 10*3/uL (1.4-7.4); Neutrophils % 79.9 % (38.7-73.9); Platelet Count 204 T/CUMM (130-400); Red Blood Count 2.92 MC/CUMM (3.8-5.5); White Blood Count 13.5 T/CUMM (4-12)
[2017-09-19 05:42] LABS: Calcium 8.7 MG/DL (8.5-10.1); Magnesium 2.4 MG/DL (1.8-2.4); Potassium 5.7 MMOL/L (3.5-5.1)
[2017-09-19] MEDS ORDERED: CEFUROXIME INJ 1,500 MG in SYRINGE 1 EACH IV ONE (08:30)
[2017-09-19] MEDS: methylPREDNISolone SOD SUC 40 MG/1 ML VIAL IV SCH ×2 (08:45→21:29)
[2017-09-19] MEDS: PANTOPRAZOLE 40 MG TABLET PO SCH (08:46)
[2017-09-19] MEDS: LORATADINE 10 MG TABLET PO SCH (08:46)
[2017-09-19] MEDS: SEVELAMER CARBONATE 800 MG TABLET PO SCH ×3 (08:46→16:45)
[2017-09-19] MEDS: ASPIRIN EC 81 MG TABLET PO SCH (08:46)
[2017-09-19] MEDS: RANOLAZINE 500 MG TABLET PO SCH ×2 (08:46→21:29)
[2017-09-19] MEDS: ROSUVASTATIN 20 MG TABLET PO SCH (08:46)
[2017-09-19] MEDS: DUTASTERIDE 0.5 MG CAPSULE PO SCH (08:46)
[2017-09-19] MEDS: TAMSULOSIN 0.4 MG CAPSULE PO SCH (08:46)
[2017-09-19] MEDS: CALCIUM CARBONATE CHEW 500 MG TABLET PO SCH ×3 (08:46→16:45)
[2017-09-19] MEDS: CHLORHEXIDINE 0.12% ORAL RINSE 60 ML BOTTLE SWISH/SPIT SCH ×2 (08:50→21:28)
[2017-09-19] MEDS: ISOSORBIDE MONONITRATE 30 MG TABLET PO SCH (08:50)
[2017-09-19] MEDS: CHLORHEXIDINE 4% SOLN 118 ML BOTTLE TOP SCH ×2 (16:11→17:01)
[2017-09-20] MEDS: SODIUM CHLORIDE 0.9% 1,000 ML IV SCH (00:01)
[2017-09-20] MEDS ORDERED: PAPAVERINE 60 MG/2 ML VIAL ONE (05:22)
[2017-09-20] MEDS ORDERED: VANCOMYCIN 1,000 MG VIAL ONE (05:22)
[2017-09-20] MEDS ORDERED: HEPARIN/NACL 0.9% 2 UNITS/ML 500 ML IV ONE (05:25)
[2017-09-20] MEDS ORDERED: DOBUTamine 500 MG/250 ML PREMIX IV ONE ×2 (05:25→11:59)
[2017-09-20] MEDS ORDERED: CALCIUM CHLORIDE 1,000 MG/10 ML VIAL IV ONE ×2 (05:25→12:07)
[2017-09-20] MEDS ORDERED: MIDAZOLAM 10 MG/2 ML VIAL ONE ×2 (05:26)
[2017-09-20] MEDS ORDERED: AMINOCAPROIC ACID 5,000 MG/20 ML VIAL IV ONE (05:27)
[2017-09-20] MEDS ORDERED: ePHEDrine 50 MG/ML AMP ONE (05:27)
[2017-09-20] MEDS ORDERED: SODIUM CHLORIDE 0.9% 500 ML IV ONE (05:27)
[2017-09-20] MEDS ORDERED: NITROGLYCERIN DRIP 50 MG/250 ML BOTTLE IV ONE (05:27)
[2017-09-20] MEDS ORDERED: VECURONIUM 10 MG VIAL IV ONE (05:27)
[2017-09-20] MEDS ORDERED: SODIUM CHLORIDE 0.9% 2,000 ML IV ONE (05:27)
[2017-09-20] MEDS ORDERED: PHENYLEPHRINE 50 MG/5 ML VIAL ONE (05:27)
[2017-09-20] MEDS: PANTOPRAZOLE 40 MG TABLET PO SCH ×2 (05:50→10:38)
[2017-09-20] MEDS ORDERED: ALBUTEROL 2.5 MG/3 ML NEB RESP TX ONE (06:00)
[2017-09-20] MEDS ORDERED: DIAZEPAM 5 MG TABLET PO ONE (06:00)
[2017-09-20 06:20] LABS: Basophils % 0.2 % (0.0-0.8); Eosinophils % 0.1 % (0.00-10.9); Hematocrit 31.7 VOL% (42.0-52.0); Hemoglobin 10.3 GM/DL (14.0-18.0); Immature Granulocytes % 1.8 %; Immature Granulocytes Absolute 0.23 #; Lymphocytes # 0.9 10*3/uL (1.4-4.0); Lymphocytes % 6.6 % (21.2-54.2); Mean Corpuscular HGB Conc 32.5 GM/DL (32-36); Mean Corpuscular Hemoglobin 35 PG (27-34); Mean Corpuscular Volume 107.5 FL (87-102); Mean Platelet Volume 11.2 FL (9.6-12.0); Monocytes # 0.6 10*3/uL (0.11-0.8); Monocytes % 4.9 % (1.7-12.7); NRBC # 0.02 10*3/uL; Neutrophils # 11.4 10*3/uL (1.4-7.4); Neutrophils % 86.4 % (38.7-73.9); Platelet Count 189 T/CUMM (130-400); Red Blood Count 2.95 MC/CUMM (3.8-5.5); Red Cell Distribution Width 15.4 % (9.3-17.3); White Blood Count 13.1 T/CUMM (4-12)
[2017-09-20 06:36] LABS: Calcium 8.7 MG/DL (8.5-10.1); Magnesium 2.2 MG/DL (1.8-2.4); Osmolality,Calculated 292.7 MOS/KG (273-304); Potassium 5.6 MMOL/L (3.5-5.1)
[2017-09-20] MEDS ORDERED: CEFUROXIME INJ 1,500 MG in SYRINGE 1 EACH IV ONE (07:00)
[2017-09-20] MEDS ORDERED: ALBUMIN 25% 25 GM/100 ML VIAL IV ONE ×2 (07:50→11:54)
[2017-09-20] MEDS ORDERED: ALBUMIN 5% 12.5 GM/250 ML VIAL IV ONE ×2 (07:50→08:42)
[2017-09-20 08:07] LABS: ABG Base Excess -0.8 MMOL/L (-2.5-2.5); ABG HCO3 23.8 MMOL/L (20-26); ABG Oxygen Saturation 99.7 % (95-100); ABG PH 7.373 (7.35-7.45); ABG TCO2 22.4 MMOL/L (23-27); Glucose Heart Surgery 145 MG/DL (74-106); Hematocrit Heart Surgery 29.3 PERCENT (42-52); Hemoglobin Heart Surgery 9.5 G/DL (14.0-18.0); Ionized Calcium Arterial 1.32 MMOL/L (1.21-1.46); PH Patient Temp Arterial 7.373; Patient Temperature 37 CELCIUS; Potassium Heart/CVR 4.8 MMOL/L (3.5-5.1); Sodium Heart/CVR 134 MMOL/L (135-145)
[2017-09-20] MEDS ORDERED: PHENYLEPHRINE DRIP 40 MG/250 ML PREMIX IV ONE (08:28)
[2017-09-20] MEDS ORDERED: CALCIUM CHLORIDE 1,000 MG/10 ML SYRINGE IV ONE (08:28)
[2017-09-20] MEDS ORDERED: NITROPRUSSIDE 50 MG/2 ML VIAL ONE (08:28)
[2017-09-20] MEDS ORDERED: POTASSIUM CHLORIDE RIDER 100 ML IV ONE (08:29)
[2017-09-20] MEDS ORDERED: LIDOCAINE 100 MG/5 ML SYRINGE ONE (08:42)
[2017-09-20] MEDS ORDERED: SODIUM BICARBONATE 50 MEQ/50 ML SYRINGE IV ONE ×2 (08:42→11:54)
[2017-09-20] MEDS ORDERED: EPINEPHrine 1 MG/10 ML SYRINGE ONE (08:42)
[2017-09-20 09:21] LABS: Hematocrit Heart Surgery 22.3 PERCENT (42-52); Hemoglobin Heart Surgery 7.1 G/DL (14.0-18.0); PCO2 Patient Temp Venous 34.8 MM HG; PH Patient Temp Venous 7.414; PO2 Patient Temp Venous 36.6 MM HG; Potassium Heart/CVR 5.3 MMOL/L (3.5-5.1); VBG Base Excess -1.9 MEQ/L (0-4); VBG HCO3 22.6 MEQ/L (24-28); VBG Oxygen Saturation 74.1 %; VBG PCO2 38.3 MMHG (41-51); VBG PH 7.385
[2017-09-20 09:52] LABS: Hematocrit Heart Surgery 28.7 PERCENT (42-52); Hemoglobin Heart Surgery 9.3 G/DL (14.0-18.0); PCO2 Patient Temp Venous 30.8 MM HG; PH Patient Temp Venous 7.444; PO2 Patient Temp Venous 35.5 MM HG; Potassium Heart/CVR 5.5 MMOL/L (3.5-5.1); VBG Base Excess -2.3 MEQ/L (0-4); VBG HCO3 22.1 MEQ/L (24-28); VBG Oxygen Saturation 73.2 %; VBG PCO2 33.9 MMHG (41-51); VBG PH 7.415; VBG PO2 40.8 MMHG (17-40)
[2017-09-20] MEDS: SEVELAMER CARBONATE 800 MG TABLET PO SCH (10:36)
[2017-09-20] MEDS: CALCIUM CARBONATE CHEW 500 MG TABLET PO SCH (10:36)
[2017-09-20] MEDS: ROSUVASTATIN 20 MG TABLET PO SCH (10:37)
[2017-09-20] MEDS: ASPIRIN EC 81 MG TABLET PO SCH (10:37)
[2017-09-20] MEDS: DUTASTERIDE 0.5 MG CAPSULE PO SCH (10:37)
[2017-09-20] MEDS: LORATADINE 10 MG TABLET PO SCH (10:37)
[2017-09-20] MEDS: TAMSULOSIN 0.4 MG CAPSULE PO SCH (10:37)
[2017-09-20] MEDS: CHLORHEXIDINE 0.12% ORAL RINSE 60 ML BOTTLE SWISH/SPIT SCH ×2 (10:38→20:24)
[2017-09-20] MEDS: CHLORHEXIDINE 4% SOLN 118 ML BOTTLE TOP SCH ×2 (10:38)
[2017-09-20] MEDS: ISOSORBIDE MONONITRATE 30 MG TABLET PO SCH (10:38)
[2017-09-20] MEDS: RANOLAZINE 500 MG TABLET PO SCH (10:38)
[2017-09-20] MEDS: methylPREDNISolone SOD SUC 40 MG/1 ML VIAL IV SCH ×2 (10:38→21:19)
[2017-09-20] MEDS ORDERED: FAMOTIDINE 20 MG/2 ML VIAL IV ONE (10:55)
[2017-09-20 11:03] LABS: ABG Base Excess -4.5 MMOL/L (-2.5-2.5); ABG HCO3 20.7 MMOL/L (20-26); ABG Oxygen Saturation 99.8 % (95-100); ABG PCO2 37.8 MM HG (35-48); ABG PH 7.346 (7.35-7.45); ABG TCO2 19.4 MMOL/L (23-27); Glucose Heart Surgery 208 MG/DL (74-106); Hematocrit Heart Surgery 24.9 PERCENT (42-52); Ionized Calcium Arterial 1.41 MMOL/L (1.21-1.46); PCO2 Patient Temp Arterial 37.8 MMHG; PH Patient Temp Arterial 7.346; Patient Temperature 37 CELCIUS; Potassium Heart/CVR 4.8 MMOL/L (3.5-5.1); Sodium Heart/CVR 135 MMOL/L (135-145)
[2017-09-20] MEDS ORDERED: PROTAMINE SULFATE 50 MG/5 ML VIAL IV ONE ×3 (11:51→13:50)
[2017-09-20] MEDS ORDERED: PROTAMINE SULFATE 250 MG/25 ML VIAL IV ONE (11:54)
[2017-09-20] MEDS ORDERED: MAGNESIUM SULFATE 1 GM/2 ML VIAL ONE (11:54)
[2017-09-20] MEDS ORDERED: DEXTROSE 5% KCL 20 MEQ 20 MEQ/1,000 ML BAG IV ONE (11:54)
[2017-09-20] MEDS ORDERED: MANNITOL 12.5 GM/50 ML VIAL IV ONE (11:55)
[2017-09-20] MEDS ORDERED: HEPARIN 10,000 UNIT/10 ML VIAL ONE (11:55)
[2017-09-20] MEDS ORDERED: methylPREDNISolone SOD SUC 1,000 MG/8 ML VIAL ONE (11:55)
[2017-09-20] MEDS ORDERED: MIDAZOLAM 2 MG/2 ML VIAL ONE (11:59)
[2017-09-20] MEDS ORDERED: SEVOFLURANE 1 UNIT/15 MINUTE INH ONE (12:07)
[2017-09-20] MEDS ORDERED: SODIUM CHLORIDE 0.9% 100 ML IV ONE (12:07)
[2017-09-20] MEDS ORDERED: EPINEPHrine 1 MG/ML VIAL ONE (12:07)
[2017-09-20] MEDS: PHENYLEPHRINE DRIP 40 MG/250 ML PREMIX IV PRN ×2 (12:10→20:25)
[2017-09-20] MEDS ORDERED: POTASSIUM CHLORIDE RIDER 20 MEQ in PREMIX 1 EACH IV PRN (12:31)
[2017-09-20] MEDS ORDERED: INSULIN REGULAR 100 UNIT/ML IV ONE (12:31)
[2017-09-20] MEDS ORDERED: POTASSIUM CHLORIDE RIDER 10 MEQ in PREMIX 1 EACH IV PRN (12:31)
[2017-09-20] MEDS ORDERED: MAGNESIUM SULF RIDER 4 GM in PREMIX 1 EACH IV PRN (12:31)
[2017-09-20] MEDS ORDERED: VECURONIUM 10 MG VIAL IV PRN ×2 (12:31)
[2017-09-20] MEDS ORDERED: LACTATED RINGERS 250 ML IV PRN (12:31)
[2017-09-20] MEDS ORDERED: NITROPRUSSIDE 100 MG in DEXTROSE 5% 250 ML IV PRN (12:31)
[2017-09-20] MEDS ORDERED: MORPHINE 10 MG/1 ML VIAL IV PRN (12:31)
[2017-09-20] MEDS ORDERED: MIDAZOLAM 2 MG/2 ML VIAL IV PRN (12:31)
[2017-09-20] MEDS ORDERED: ONDANSETRON 4 MG/2 ML VIAL IV PRN (12:31)
[2017-09-20] MEDS ORDERED: MORPHINE 2 MG/1 ML SYRINGE IV PRN (12:31)
[2017-09-20] MEDS ORDERED: DEXTROSE 50% 25 GM/50 ML VIAL IV PRN ×2 (12:31)
[2017-09-20] MEDS ORDERED: CALCIUM CHLORIDE 1,000 MG/10 ML SYRINGE IV PRN (12:31)
[2017-09-20] MEDS ORDERED: MAGNESIUM SULF RIDER 2 GM in PREMIX 1 EACH IV PRN (12:31)
[2017-09-20] MEDS ORDERED: INSULIN REGULAR 100 UNIT/ML IV PRN (12:31)
[2017-09-20] MEDS ORDERED: ACETAMINOPHEN 650 MG SUPP RECTAL PRN (12:31)
[2017-09-20] MEDS: MIDAZOLAM 10 MG/2 ML VIAL IV PRN ×2 (13:00→15:00)
[2017-09-20 13:47] LABS: ABG Base Excess -2.3 MMOL/L (-2.5-2.5); ABG HCO3 22.5 MMOL/L (20-26); ABG Oxygen Saturation 99.5 % (95-100); ABG PCO2 35.5 MM HG (35-48); ABG TCO2 20.4 MMOL/L (23-27); Glucose Heart Surgery 164 MG/DL (74-106); Hematocrit Heart Surgery 26.4 PERCENT (42-52); Hemoglobin Heart Surgery 8.5 G/DL (14.0-18.0); Potassium Heart/CVR 4.8 MMOL/L (3.5-5.1)
[2017-09-20] MEDS: SODIUM CHLORIDE 0.45% 1,000 ML IV SCH ×2 (13:54)
[2017-09-20 13:57] LABS: Basophils % 0.1 % (0.0-0.8); Eosinophils % 0.1 % (0.00-10.9); Hematocrit 25.6 VOL% (42.0-52.0); Hemoglobin 8.1 GM/DL (14.0-18.0); INR 1.3; Immature Granulocytes % 1.8 %; Lymphocytes # 0.7 10*3/uL (1.4-4.0); Lymphocytes % 2.9 % (21.2-54.2); Mean Corpuscular HGB Conc 31.6 GM/DL (32-36); Mean Corpuscular Hemoglobin 33 PG (27-34); Mean Corpuscular Volume 104.9 FL (87-102); Mean Platelet Volume 11.3 FL (9.6-12.0); Monocytes # 1.1 10*3/uL (0.11-0.8); Monocytes % 4.7 % (1.7-12.7); NRBC # 0.03 10*3/uL; Neutrophils # 20.5 10*3/uL (1.4-7.4); Neutrophils % 90.4 % (38.7-73.9); PT Patient Result 13.1 SECS; Partial Thromboplastin Time 27.4 SECS (0-40); Platelet Count 200 T/CUMM (130-400); Red Blood Count 2.44 MC/CUMM (3.8-5.5); Red Cell Distribution Width 17.6 % (9.3-17.3); White Blood Count 22.7 T/CUMM (4-12)
[2017-09-20 14:13] LABS: Albumin 3.1 G/DL (3.4-5.0); Bilirubin,Total 0.8 MG/DL (0.2-1.0); CKMB % 9.4 %; Calcium 9.9 MG/DL (8.5-10.1); Magnesium 2.4 MG/DL (1.8-2.4); Osmolality,Calculated 299.4 MOS/KG (273-304); Potassium 4.9 MMOL/L (3.5-5.1); Total Protein 5.3 G/DL (6.4-8.3)
[2017-09-20 14:15] LABS: Troponin I Only 7.06 NG/ML (0.00-0.045)
[2017-09-20] MEDS: DOBUTamine 500 MG/250 ML PREMIX IV SCH (15:02)
[2017-09-20 15:16] LABS: Band Neutrophils 2 % (0-10); Hypochromasia 1+; Lymphocytes 3 % (20-55); Segmented Neutrophils 90 % (50-85); Total Cells Counted 100
[2017-09-20 15:17] LABS: Platelet Estimate Adequate; Polychromasia 1+
[2017-09-20] MEDS ORDERED: PROPOFOL 1,000 MG/100 ML BOTTLE IV ONE (16:11)
[2017-09-20] MEDS: PROPOFOL 1,000 MG/100 ML BOTTLE IV SCH (16:30)
[2017-09-20 17:22] LABS: ABG Base Excess -6.5 MMOL/L (-2.5-2.5); ABG HCO3 19.1 MMOL/L (20-26); ABG PCO2 32.2 MM HG (35-48); ABG PH 7.359 (7.35-7.45); ABG TCO2 16.6 MMOL/L (23-27); Glucose Heart Surgery 181 MG/DL (74-106); Hematocrit Heart Surgery 30.1 PERCENT (42-52); Hemoglobin Heart Surgery 9.7 G/DL (14.0-18.0); Potassium Heart/CVR 5.2 MMOL/L (3.5-5.1)
[2017-09-20] MEDS: INSULIN REGULAR DRIP 100 ML IV SCH (18:44)
[2017-09-20] MEDS: CEFUROXIME INJ 1,500 MG in SYRINGE 1 EACH IV SCH (20:19)
[2017-09-20 21:00] LABS: ABG Base Excess -7.8 MMOL/L (-2.5-2.5); ABG HCO3 16.8 MMOL/L (20-26); ABG Oxygen Saturation 98.4 % (95-100); ABG PCO2 31.5 MM HG (35-48); ABG PH 7.346 (7.35-7.45); ABG PO2 157.9 MM HG (80-95); ABG TCO2 17.8 MMOL/L (23-27); Glucose Heart Surgery 146 MG/DL (74-106); Potassium Heart/CVR 5.1 MMOL/L (3.5-5.1)
[2017-09-21] MEDS: PHENYLEPHRINE DRIP 40 MG/250 ML PREMIX IV PRN ×2 (00:37→05:10)
[2017-09-21] MEDS: PROPOFOL 1,000 MG/100 ML BOTTLE IV SCH ×2 (01:07→18:02)
[2017-09-21 04:04] LABS: ABG Base Excess -6.4 MMOL/L (-2.5-2.5); ABG HCO3 17.3 MMOL/L (20-26); ABG Oxygen Saturation 98.3 % (95-100); ABG PCO2 29.1 MM HG (35-48); ABG PH 7.393 (7.35-7.45); ABG PO2 143.2 MM HG (80-95); ABG TCO2 18.2 MMOL/L (23-27); Glucose Heart Surgery 88 MG/DL (74-106); Hemoglobin Heart Surgery 11.1 G/DL (14.0-18.0); Potassium Heart/CVR 5.5 MMOL/L (3.5-5.1)
[2017-09-21 04:20] LABS: Basophils # 0.1 10*3/uL (0.0-0.2); Basophils % 0.2 % (0.0-0.8); Hematocrit 32.5 VOL% (42.0-52.0); Hemoglobin 10.6 GM/DL (14.0-18.0); Immature Granulocytes % 2.3 %; Immature Granulocytes Absolute 0.57 #; Lymphocytes % 3.9 % (21.2-54.2); Mean Corpuscular HGB Conc 32.6 GM/DL (32-36); Mean Corpuscular Hemoglobin 32 PG (27-34); Mean Corpuscular Volume 99.4 FL (87-102); Mean Platelet Volume 11.5 FL (9.6-12.0); Monocytes # 1.4 10*3/uL (0.11-0.8); Monocytes % 5.5 % (1.7-12.7); NRBC # 0.06 10*3/uL; Neutrophils # 21.9 10*3/uL (1.4-7.4); Neutrophils % 88.1 % (38.7-73.9); Platelet Count 235 T/CUMM (130-400); Red Blood Count 3.27 MC/CUMM (3.8-5.5); Red Cell Distribution Width 21.2 % (9.3-17.3); White Blood Count 24.8 T/CUMM (4-12)
[2017-09-21 04:50] LABS: CKMB % 6.9 %
[2017-09-21 04:53] LABS: Bilirubin,Direct 0.19 MG/DL (0.0-0.20); Bilirubin,Total 0.5 MG/DL (0.2-1.0); Calcium 9.2 MG/DL (8.5-10.1); Magnesium 2.5 MG/DL (1.8-2.4); Osmolality,Calculated 296.4 MOS/KG (273-304); Potassium 5.6 MMOL/L (3.5-5.1); Total Protein 5.3 G/DL (6.4-8.3)
[2017-09-21 05:28] LABS: Lymphocytes 5 % (20-55); Platelet Estimate Adequate; Segmented Neutrophils 93 % (50-85); Total Cells Counted 100
[2017-09-21 05:29] LABS: Giant Platelets Few; Hypochromasia 1+; Polychromasia Slight
[2017-09-21] MEDS ORDERED: THROMBIN TOPICAL (RECOMBINANT) 5,000 UNIT VIAL TOP ONE (05:32)
[2017-09-21] MEDS: ALBUMIN 5% 12.5 GM in PREMIX 1 EACH IV PRN ×3 (06:46→19:13)
[2017-09-21] MEDS ORDERED: SODIUM BICARB INJ 150 MEQ in DEXTROSE 5% 1,000 ML IV SCH (08:30)
[2017-09-21 09:06] LABS: ABG HCO3 16.2 MMOL/L (20-26); ABG Oxygen Saturation 97.8 % (95-100); ABG PCO2 28.8 MM HG (35-48); ABG PH 7.367 (7.35-7.45); Glucose Heart Surgery 87 MG/DL (74-106); Hemoglobin Heart Surgery 10.4 G/DL (14.0-18.0); Potassium Heart/CVR 5.2 MMOL/L (3.5-5.1)
[2017-09-21] MEDS: CEFUROXIME INJ 1,500 MG in SYRINGE 1 EACH IV SCH ×2 (09:31→20:53)
[2017-09-21] MEDS: methylPREDNISolone SOD SUC 40 MG/1 ML VIAL IV SCH (09:31)
[2017-09-21] MEDS: CHLORHEXIDINE 0.12% ORAL RINSE 60 ML BOTTLE SWISH/SPIT SCH (09:34)
[2017-09-21] MEDS ORDERED: PHENYLEPHRINE INJ 160 MG in SODIUM CHLORIDE 0.9% 234 ML IV SCH (12:00)
[2017-09-21] MEDS ORDERED: KETOROLAC 30 MG/1 ML VIAL IV ONE (13:30)
[2017-09-21 13:43] LABS: ABG Base Excess -9.9 MMOL/L (-2.5-2.5); ABG HCO3 16.6 MMOL/L (20-26); ABG Oxygen Saturation 99.1 % (95-100); ABG PCO2 30.5 MM HG (35-48); Glucose Heart Surgery 112 MG/DL (74-106); Hematocrit Heart Surgery 32.9 PERCENT (42-52); Hemoglobin Heart Surgery 10.7 G/DL (14.0-18.0); Potassium Heart/CVR 5.2 MMOL/L (3.5-5.1)
[2017-09-21] MEDS ORDERED: oxyCODONE/ACETAMINOPHEN 5-325 MG TABLET PO PRN (13:53)
[2017-09-21] MEDS: KETOROLAC 30 MG/1 ML VIAL IV SCH ×2 (14:58→18:42)
[2017-09-21] MEDS: DOBUTamine 500 MG/250 ML PREMIX IV SCH (16:41)
[2017-09-21] MEDS ORDERED: INSULIN REGULAR 100 UNIT/ML SUBCUT SCH (18:00)
[2017-09-21] MEDS: SODIUM CHLORIDE 0.45% 1,000 ML IV SCH ×2 (18:01→18:02)
[2017-09-21] MEDS: INSULIN REGULAR DRIP 100 ML IV SCH (18:36)
[2017-09-21] MEDS ORDERED: AMIODARONE 450 MG/9 ML VIAL IV ONE (19:00)
[2017-09-21] MEDS ORDERED: AMIODARONE 150 MG/3 ML VIAL ONE (19:01)
[2017-09-21] MEDS ORDERED: HYDROmorphone 2 MG/1 ML VIAL ONE (19:01)
[2017-09-21] MEDS ORDERED: HYDROmorphone 2 MG/1 ML VIAL IV PRN (19:11)
[2017-09-21] MEDS ORDERED: AMIODARONE INJ 150 MG in DEXTROSE 5% 100 ML IV ONE (19:12)
[2017-09-21] MEDS ORDERED: EPINEPHrine 1 MG/10 ML SYRINGE ONE (19:15)
[2017-09-21] MEDS ORDERED: ETOMIDATE 20 MG/10 ML VIAL IV ONE ×2 (19:15→19:17)
[2017-09-21] MEDS ORDERED: SODIUM BICARBONATE 50 MEQ/50 ML SYRINGE IV ONE (19:15)
[2017-09-21] MEDS ORDERED: CALCIUM CHLORIDE 1,000 MG/10 ML SYRINGE IV ONE (19:15)
[2017-09-21] MEDS ORDERED: PROPOFOL 0 MG/0 ML BOTTLE IV ONE (19:17)
[2017-09-21] MEDS ORDERED: AMIODARONE INJ 450 MG in DEXTROSE 5% 241 ML IV SCH (19:30)
[2017-09-21] MEDS ORDERED: EPINEPHrine 1 MG/ML VIAL ONE ×2 (19:42→19:43)
[2017-09-21 19:47] LABS: ABG Base Excess -14.2 MMOL/L (-2.5-2.5); ABG HCO3 13.6 MMOL/L (20-26); ABG Oxygen Saturation 99.4 % (95-100); ABG PCO2 27.2 MM HG (35-48); Glucose Heart Surgery 221 MG/DL (74-106); Hematocrit Heart Surgery 32.2 PERCENT (42-52); Hemoglobin Heart Surgery 10.4 G/DL (14.0-18.0)
[2017-09-21 19:49] LABS: Potassium Heart/CVR 6.3 MMOL/L (3.5-5.1)
[2017-09-21 19:51] LABS: Basophils # 0.1 10*3/uL (0.0-0.2); Basophils % 0.2 % (0.0-0.8); Hematocrit 32.4 VOL% (42.0-52.0); Hemoglobin 10.4 GM/DL (14.0-18.0); Immature Granulocytes % 2.1 %; Immature Granulocytes Absolute 0.55 #; Lymphocytes # 2.5 10*3/uL (1.4-4.0); Lymphocytes % 9.5 % (21.2-54.2); Mean Corpuscular HGB Conc 32.1 GM/DL (32-36); Mean Corpuscular Hemoglobin 33 PG (27-34); Mean Corpuscular Volume 101.9 FL (87-102); Mean Platelet Volume 11.7 FL (9.6-12.0); Monocytes # 1.1 10*3/uL (0.11-0.8); Monocytes % 4.1 % (1.7-12.7); NRBC # 0.07 10*3/uL; Neutrophils % 84.1 % (38.7-73.9); Platelet Count 189 T/CUMM (130-400); Red Blood Count 3.18 MC/CUMM (3.8-5.5); Red Cell Distribution Width 21.3 % (9.3-17.3); White Blood Count 26.1 T/CUMM (4-12)
[2017-09-21 20:11] LABS: Calcium 10.5 MG/DL (8.5-10.1); Magnesium 2.7 MG/DL (1.8-2.4); Osmolality,Calculated 311.3 MOS/KG (273-304)
[2017-09-21 20:12] LABS: Potassium 6.5 MMOL/L (3.5-5.1)
[2017-09-21 20:26] VITALS: BP 51/28
[2017-09-21 21:01] LABS: Lymphocytes 12 % (20-55); Nucleated Red Blood Cells 1 (0-5); Platelet Estimate Normal; Segmented Neutrophils 87 % (50-85); Total Cells Counted 100
[2017-09-22] MEDS ORDERED: AMIODARONE INJ 450 MG in DEXTROSE 5% 241 ML IV SCH (01:30)
== END 2017-09-21 19:55 | disposition expired | DRG 233 ==
LOC: N.TELES → OBSVTOIN 12:27 → EDSTATUS 09-15 12:00 → N.CVR 09-20 09:02 → N.ICU 09-21 17:27
PROVIDERS: ADMIT Internal Medicine Cardiovascular Disease; ATTEND Family Medicine
PROC: CLCCHCL (ICD-10-PCS; 2017-09-15 12:15)